=== PATIENT | female | born 1955 | race African-American/Black ===

== ENCOUNTER 2017-08-12 19:41 | Observation (INO) ==
[2017-08-12] MEDS ORDERED: KETOROLAC 30 MG/1 ML VIAL IV STA (20:08)
[2017-08-12] MEDS ORDERED: KETOROLAC 30 MG/1 ML VIAL ONE (20:13)
[2017-08-12 20:47] LABS: Basophils % 0.2 % (0.0-0.8); Eosinophils # 0.1 10*3/uL (0.0-0.87); Eosinophils % 0.9 % (0.00-10.9); Hematocrit 35.5 VOL% (35.7-47.0); Hemoglobin 10.6 GM/DL (12.0-16.0); Immature Granulocytes % 0.4 %; Immature Granulocytes Absolute 0.04 #; Lymphocytes # 3.3 10*3/uL (1.4-4.0); Lymphocytes % 36.5 % (21.3-54.2); Mean Corpuscular HGB Conc 29.9 GM/DL (32-36); Mean Corpuscular Hemoglobin 28 PG (27-34); Mean Corpuscular Volume 92.7 FL (87-102); Mean Platelet Volume 10.3 FL (9.6-12.0); Monocytes # 0.8 10*3/uL (0.11-0.8); Monocytes % 8.7 % (1.7-12.7); Neutrophils # 4.9 10*3/uL (1.4-7.4); Neutrophils % 53.3 % (38.7-73.9); Platelet Count 292 T/CUMM (130-400); Red Blood Count 3.83 MC/CUMM (3.8-5.5); Red Cell Distribution Width 15.1 % (9.3-17.3); White Blood Count 9.2 T/CUMM (4-12)
[2017-08-12 21:08] LABS: Alanine Aminotransferase 19 U/L (13-56); Albumin 3.1 G/DL (3.4-5.0); Alkaline Phosphatase 68 U/L (45-117); Aspartate Amino Transferase 15 U/L (0-37); Bilirubin,Total < 0.39 MG/DL (0.2-1.0); Blood Urea Nitrogen 23 MG/DL (7-18); Calcium 8.9 MG/DL (8.5-10.1); Glucose 84 MG/DL (74-106); Osmolality,Calculated 288.8 MOS/KG (273-304); Potassium 3.3 MMOL/L (3.5-5.1); Sodium 144 MMOL/L (136-145); Troponin I Only 0.026 NG/ML (0.00-0.045)
[2017-08-12 21:23] LABS: Apearance,Urine Slightly Hazy (Clear); Bilirubin,Urine Negative (Negative); Blood, Urine Negative (Negative); Glucose,Urine (UA) Negative (Negative); Ketones,Urine Negative (Negative); Mucus,Urine Occasional /LPF (Occasional); Nitrite,Urine Negative (Negative); Protein,Urine Negative; RBC,Urine 24 /HPF (0-4); Squamous Epithelial Cell,Urine Occasional /HPF (0-10); Urine Color Yellow (Yellow); Urine Specific Gravity 1.031 (1.001-1.035); WBC,Urine 3 /HPF (0-6)
[2017-08-12 21:32] LABS: Barbiturates Screen,Urine Negative (Negative); Benzodiazepines Screen,Urine Negative (Negative); Cannabinoid Screen,Urine Negative (Negative); Opiate Screen,Urine Positive (Negative); Phencyclidine Screen,Urine Negative (Negative)
[2017-08-12] MEDS ORDERED: POTASSIUM BICARB EFFERVESCENT 25 MEQ TABLET PO ONE ×2 (21:32→21:36)
[2017-08-12] MEDS ORDERED: SODIUM CHLORIDE 0.9% 1,000 ML IV SCH (22:00)
[2017-08-13 05:59] LABS: Calcium 9.2 MG/DL (8.5-10.1); Osmolality,Calculated 291.8 MOS/KG (273-304); Potassium 3.9 MMOL/L (3.5-5.1)
[2017-08-13 08:56] LABS: Basophils % 0.3 % (0.0-0.8); Eosinophils # 0.1 10*3/uL (0.0-0.87); Eosinophils % 1.4 % (0.00-10.9); Hematocrit 38.1 VOL% (35.7-47.0); Hemoglobin 11.4 GM/DL (12.0-16.0); Immature Granulocytes % 0.3 %; Immature Granulocytes Absolute 0.02 #; Lymphocytes # 2.8 10*3/uL (1.4-4.0); Lymphocytes % 41.4 % (21.3-54.2); Mean Corpuscular HGB Conc 29.9 GM/DL (32-36); Mean Corpuscular Hemoglobin 28 PG (27-34); Mean Corpuscular Volume 93.2 FL (87-102); Mean Platelet Volume 9.8 FL (9.6-12.0); Monocytes # 0.5 10*3/uL (0.11-0.8); Monocytes % 7.7 % (1.7-12.7); Neutrophils # 3.3 10*3/uL (1.4-7.4); Neutrophils % 48.9 % (38.7-73.9); Platelet Count 286 T/CUMM (130-400); Red Blood Count 4.09 MC/CUMM (3.8-5.5); Red Cell Distribution Width 15.3 % (9.3-17.3); White Blood Count 6.7 T/CUMM (4-12)
[2017-08-13] MEDS ORDERED: TOPIRAMATE 100 MG TABLET PO SCH (09:00)
[2017-08-13] MEDS ORDERED: amLODIPine 10 MG TABLET PO SCH (09:00)
[2017-08-13] MEDS ORDERED: TOPIRAMATE 25 MG TABLET PO SCH (09:00)
[2017-08-13] MEDS ORDERED: VALSARTAN 160 MG TABLET PO SCH (09:00)
[2017-08-13] MEDS ORDERED: CARVEDILOL 25 MG TABLET PO SCH (09:00)
[2017-08-13] MEDS ORDERED: tiZANidine 4 MG TABLET PO SCH (09:00)
[2017-08-13] MEDS ORDERED: CLOPIDOGREL 75 MG TABLET PO SCH (09:00)
[2017-08-13] MEDS ORDERED: MORPHINE 2 MG/1 ML SYRINGE IV PRN (09:54)
[2017-08-13] MEDS ORDERED: VANCOMYCIN INJ 1,000 MG in SODIUM CHLORIDE 0.9% 250 ML IV ONE (10:30)
[2017-08-13] MEDS ORDERED: ASPIRIN EC 81 MG TABLET PO SCH (11:00)
[2017-08-13] MEDS ORDERED: LIDOCAINE 1% 20 ML VIAL ONE (14:13)
[2017-08-13] MEDS ORDERED: TISSUE ADHESIVE 1 EACH APPLICATOR TOP ONE ×2 (14:16→14:30)
[2017-08-13] MEDS ORDERED: LIDOCAINE 1% 20 ML VIAL MISC INJ ONE (14:30)
[2017-08-13] MEDS ORDERED: ACETAMINOPHEN 500 MG TABLET PO ONE (16:07)
[2017-08-13 17:17] VITALS: BP 113/79
[2017-08-13] MEDS ORDERED: INFLUENZA VIRUS VACCINE 0.5 ML SYRINGE IM ONE (17:46)
[2017-08-13] MEDS ORDERED: PNEUMOCOCCAL VACCINE (13 VALENT) 0.5 ML SYRINGE IM ONE (17:47)
[2017-08-13] MEDS ORDERED: AMITRIPTYLINE 100 MG TABLET PO SCH (21:00)
[2017-08-14] MEDS ORDERED: DILTIAZEM CD 120 MG CAPSULE PO SCH (09:00)
== END 2017-08-13 18:50 | disposition home or self-care (01) ==
LOC: EDBD → EDUNIT# → N.EDINP 19:41 → N.ED 19:41 → N.EDINP 22:35 → N.TELEN 22:56
PROVIDERS: ADMIT Internal Medicine; ATTEND Internal Medicine

== ENCOUNTER 2017-11-02 20:08 | Inpatient (IN) ==
[2017-11-02 22:20] LABS: Basophils % 0.4 % (0.0-0.8); Eosinophils # 0.2 10*3/uL (0.0-0.87); Eosinophils % 3.8 % (0.00-10.9); Hematocrit 35.1 VOL% (35.7-47.0); Hemoglobin 10.6 GM/DL (12.0-16.0); Immature Granulocytes % 0.4 %; Immature Granulocytes Absolute 0.02 #; Lymphocytes # 2.5 10*3/uL (1.4-4.0); Lymphocytes % 45.6 % (21.3-54.2); Mean Corpuscular HGB Conc 30.2 GM/DL (32-36); Mean Corpuscular Hemoglobin 28 PG (27-34); Mean Corpuscular Volume 91.6 FL (87-102); Mean Platelet Volume 10.3 FL (9.6-12.0); Monocytes # 0.4 10*3/uL (0.11-0.8); Monocytes % 7.5 % (1.7-12.7); Neutrophils # 2.3 10*3/uL (1.4-7.4); Neutrophils % 42.3 % (38.7-73.9); Platelet Count 285 T/CUMM (130-400); Red Blood Count 3.83 MC/CUMM (3.8-5.5); Red Cell Distribution Width 14.6 % (9.3-17.3); White Blood Count 5.5 T/CUMM (4-12)
[2017-11-02 22:28] LABS: INR 1.1; PT Patient Result 11.9 SECS
[2017-11-02 22:42] LABS: Alanine Aminotransferase 12 U/L (13-56); Albumin 3.7 G/DL (3.4-5.0); Alkaline Phosphatase 74 U/L (45-117); Aspartate Amino Transferase 10 U/L (0-37); Bilirubin,Total < 0.39 MG/DL (0.2-1.0); Blood Urea Nitrogen 21 MG/DL (7-18); Calcium 9.2 MG/DL (8.5-10.1); Glucose 110 MG/DL (74-106); Osmolality,Calculated 286.1 MOS/KG (273-304); Potassium 3.5 MMOL/L (3.5-5.1); Sodium 142 MMOL/L (136-145); Total Protein 7.3 G/DL (6.4-8.3); Troponin I Only < 0.015 NG/ML (0.00-0.045)
[2017-11-03] MEDS ORDERED: ONDANSETRON 4 MG/2 ML VIAL IV STA (00:43)
[2017-11-03] MEDS ORDERED: ASPIRIN 325 MG TABLET PO STA (00:43)
[2017-11-03] MEDS ORDERED: MORPHINE 2 MG/1 ML SYRINGE IV STA (00:43)
[2017-11-03] MEDS ORDERED: ALUM/MAG/SIMETH/LIDO VISC 1:1 30 ML BOTTLE PO STA (00:43)
[2017-11-03] MEDS ORDERED: NITROGLYCERIN 2% OINT 1 INCH/GM PACK TOP STA (00:43)
[2017-11-03] MEDS ORDERED: FUROSEMIDE 40 MG/4 ML VIAL IV STA (00:45)
[2017-11-03] MEDS ORDERED: NITROGLYCERIN 2% OINT 1 INCH/GM PACK TOP ONE ×2 (00:51→06:15)
[2017-11-03] MEDS ORDERED: ASPIRIN 325 MG TABLET ONE ×2 (00:52→09:00)
[2017-11-03] MEDS ORDERED: ONDANSETRON 4 MG/2 ML VIAL ONE ×2 (00:52→06:33)
[2017-11-03] MEDS ORDERED: MORPHINE 2 MG/1 ML SYRINGE ONE ×2 (00:52→06:34)
[2017-11-03] MEDS ORDERED: FUROSEMIDE 40 MG/4 ML VIAL ONE (00:52)
[2017-11-03] MEDS ORDERED: ALUM/MAG/SIMETH/LIDO VISC 1:1 30 ML BOTTLE PO ONE (00:53)
[2017-11-03] MEDS ORDERED: ENOXAPARIN 100 MG/ML SYRINGE SUBCUT SCH (01:30)
[2017-11-03] MEDS ORDERED: ENOXAPARIN 30 MG/0.3 ML SYRINGE ONE (03:05)
[2017-11-03] MEDS ORDERED: ENOXAPARIN 120 MG/0.8 ML SYRINGE SUBCUT ONE (03:05)
[2017-11-03] MEDS ORDERED: ACETAMINOPHEN 325 MG TABLET PO PRN (03:31)
[2017-11-03] MEDS ORDERED: ONDANSETRON 4 MG/2 ML VIAL IV PRN (03:31)
[2017-11-03] MEDS ORDERED: ALBUTEROL/IPRATROPIUM 3 ML NEB RESP TX PRN (03:31)
[2017-11-03 04:14] LABS: INR 1.2; PT Patient Result 12.6 SECS
[2017-11-03] MEDS: SODIUM CHLORIDE 0.9% 1,000 ML IV SCH (04:18)
[2017-11-03 04:27] LABS: Alanine Aminotransferase 12 U/L (13-56); Albumin 3.4 G/DL (3.4-5.0); Alkaline Phosphatase 71 U/L (45-117); Aspartate Amino Transferase 17 U/L (0-37); Bilirubin,Total < 0.39 MG/DL (0.2-1.0); Blood Urea Nitrogen 21 MG/DL (7-18); Cholesterol 203 MG/DL (50-200); Glucose 117 MG/DL (74-106); HDL Cholesterol 57 MG/DL (40-60); Magnesium 2.4 MG/DL (1.8-2.4); Osmolality,Calculated 291.7 MOS/KG (273-304); Potassium 3.9 MMOL/L (3.5-5.1); Risk Ratio 3.56; Sodium 145 MMOL/L (136-145); Total Protein 6.3 G/DL (6.4-8.3); Triglycerides 121 MG/DL (2-150); VLDL CHOLESTEROL 24.2 MG/DL
[2017-11-03 04:31] LABS: Basophils % 0.6 % (0.0-0.8); Eosinophils # 0.2 10*3/uL (0.0-0.87); Eosinophils % 4.4 % (0.00-10.9); Hematocrit 29.9 VOL% (35.7-47.0); Hemoglobin 8.8 GM/DL (12.0-16.0); Immature Granulocytes % 0.2 %; Immature Granulocytes Absolute 0.01 #; Lymphocytes # 2.4 10*3/uL (1.4-4.0); Lymphocytes % 44.8 % (21.3-54.2); Mean Corpuscular HGB Conc 29.4 GM/DL (32-36); Mean Corpuscular Hemoglobin 28 PG (27-34); Mean Corpuscular Volume 94.9 FL (87-102); Mean Platelet Volume 10.8 FL (9.6-12.0); Monocytes # 0.5 10*3/uL (0.11-0.8); Monocytes % 8.8 % (1.7-12.7); Neutrophils # 2.2 10*3/uL (1.4-7.4); Neutrophils % 41.2 % (38.7-73.9); Platelet Count 219 T/CUMM (130-400); Red Blood Count 3.15 MC/CUMM (3.8-5.5); Red Cell Distribution Width 14.9 % (9.3-17.3); White Blood Count 5.4 T/CUMM (4-12)
[2017-11-03] MEDS: NITROGLYCERIN 2% OINT 1 INCH/GM PACK TOP SCH ×3 (06:00→17:33)
[2017-11-03 06:45] LABS: Apearance,Urine Slightly Hazy (Clear); Bacteria,Urine Occasional /HPF (Few); Bilirubin,Urine Negative (Negative); Blood, Urine Negative (Negative); Glucose,Urine (UA) Negative (Negative); Hyaline Casts,Urine 2 /LPF (0-3); Ketones,Urine Negative (Negative); Mucus,Urine Occasional /LPF (Occasional); Nitrite,Urine Negative (Negative); Protein,Urine Negative; Squamous Epithelial Cell,Urine Occasional /HPF (0-10); Urine Color Yellow (Yellow); Urine Specific Gravity 1.005 (1.001-1.035); Urine Urobilinogen < 2.0 EU/DL (0.2-1.0); WBC,Urine <1 /HPF (0-6)
[2017-11-03] MEDS: MORPHINE 2 MG/1 ML SYRINGE IV PRN ×2 (06:48→12:34)
[2017-11-03] MEDS ORDERED: PANTOPRAZOLE 40 MG VIAL IV ONE (08:59)
[2017-11-03] MEDS ORDERED: DOCUSATE SODIUM 100 MG CAPSULE ONE (08:59)
[2017-11-03] MEDS ORDERED: PANTOPRAZOLE 40 MG VIAL IV SCH (09:00)
[2017-11-03] MEDS ORDERED: ASPIRIN CHEW 81 MG TABLET PO ONE (09:02)
[2017-11-03] MEDS: DOCUSATE SODIUM 100 MG CAPSULE PO SCH ×2 (09:07→21:10)
[2017-11-03] MEDS: ASPIRIN EC 81 MG TABLET PO SCH (09:17)
[2017-11-03] MEDS: CARVEDILOL 12.5 MG TABLET PO SCH ×2 (14:16→21:10)
[2017-11-03] MEDS: hydrALAZINE 25 MG TABLET PO SCH ×2 (14:16→21:10)
[2017-11-03] MEDS: CLOPIDOGREL 75 MG TABLET PO SCH (14:16)
[2017-11-03] MEDS: DILTIAZEM CD 120 MG CAPSULE PO SCH (14:16)
[2017-11-03] MEDS: tiZANidine 4 MG TABLET PO SCH (21:09)
[2017-11-03] MEDS: TOPIRAMATE 25 MG TABLET PO SCH (21:10)
[2017-11-03] MEDS: AMITRIPTYLINE 100 MG TABLET PO SCH (21:14)
[2017-11-04] MEDS: NITROGLYCERIN 2% OINT 1 INCH/GM PACK TOP SCH ×4 (00:16→17:47)
[2017-11-04] MEDS: MORPHINE 2 MG/1 ML SYRINGE IV PRN ×2 (00:52→14:50)
[2017-11-04] MEDS: SODIUM CHLORIDE 0.9% 1,000 ML IV SCH (06:16)
[2017-11-04 07:07] LABS: Albumin 3.7 G/DL (3.4-5.0); Bilirubin,Total 0.5 MG/DL (0.2-1.0); Magnesium 2.6 MG/DL (1.8-2.4); Osmolality,Calculated 282.4 MOS/KG (273-304); Potassium 4.5 MMOL/L (3.5-5.1); Thyroid Stimulating Hormone 0.83 uIU/ml (0.358-3.74); Total Protein 6.7 G/DL (6.4-8.3)
[2017-11-04] MEDS: VALSARTAN 160 MG TABLET PO SCH (09:08)
[2017-11-04] MEDS: hydrALAZINE 25 MG TABLET PO SCH ×3 (09:08→22:43)
[2017-11-04] MEDS: ASPIRIN EC 81 MG TABLET PO SCH (09:08)
[2017-11-04] MEDS: CLOPIDOGREL 75 MG TABLET PO SCH (09:08)
[2017-11-04] MEDS: PANTOPRAZOLE 40 MG TABLET PO SCH (09:09)
[2017-11-04] MEDS: DOCUSATE SODIUM 100 MG CAPSULE PO SCH ×2 (09:09→22:43)
[2017-11-04] MEDS: DILTIAZEM CD 120 MG CAPSULE PO SCH (09:09)
[2017-11-04] MEDS: CARVEDILOL 12.5 MG TABLET PO SCH ×2 (09:09→22:42)
[2017-11-04] MEDS: TOPIRAMATE 25 MG TABLET PO SCH ×2 (09:09→22:43)
[2017-11-04] MEDS: FUROSEMIDE 40 MG TABLET PO SCH (09:09)
[2017-11-04] MEDS: tiZANidine 4 MG TABLET PO SCH ×2 (09:09→22:43)
[2017-11-04 14:43] LABS: Calcium 9.2 MG/DL (8.5-10.1); Magnesium 2.4 MG/DL (1.8-2.4); Osmolality,Calculated 282.5 MOS/KG (273-304); Potassium 4.4 MMOL/L (3.5-5.1)
[2017-11-04 14:54] LABS: Basophils % 0.3 % (0.0-0.8); Eosinophils # 0.1 10*3/uL (0.0-0.87); Eosinophils % 1.1 % (0.00-10.9); Hematocrit 35.2 VOL% (35.7-47.0); Hemoglobin 10.2 GM/DL (12.0-16.0); Immature Granulocytes % 0.1 %; Immature Granulocytes Absolute 0.01 #; Lymphocytes % 42.5 % (21.3-54.2); Mean Corpuscular Hemoglobin 28 PG (27-34); Mean Corpuscular Volume 94.9 FL (87-102); Monocytes # 0.7 10*3/uL (0.11-0.8); Monocytes % 9.3 % (1.7-12.7); Neutrophils # 3.3 10*3/uL (1.4-7.4); Neutrophils % 46.7 % (38.7-73.9); Platelet Count 264 T/CUMM (130-400); Red Blood Count 3.71 MC/CUMM (3.8-5.5); Red Cell Distribution Width 14.6 % (9.3-17.3); White Blood Count 7.1 T/CUMM (4-12)
[2017-11-04] MEDS: AMITRIPTYLINE 100 MG TABLET PO SCH (22:42)
[2017-11-05] MEDS: NITROGLYCERIN 2% OINT 1 INCH/GM PACK TOP SCH ×4 (02:58→17:07)
[2017-11-05 04:44] LABS: Basophils % 0.3 % (0.0-0.8); Eosinophils # 0.1 10*3/uL (0.0-0.87); Eosinophils % 1.2 % (0.00-10.9); Hematocrit 29.9 VOL% (35.7-47.0); Hemoglobin 8.9 GM/DL (12.0-16.0); Immature Granulocytes % 0.3 %; Immature Granulocytes Absolute 0.02 #; Lymphocytes # 3.4 10*3/uL (1.4-4.0); Lymphocytes % 49.7 % (21.3-54.2); Mean Corpuscular HGB Conc 29.8 GM/DL (32-36); Mean Corpuscular Hemoglobin 28 PG (27-34); Mean Corpuscular Volume 93.4 FL (87-102); Mean Platelet Volume 10.1 FL (9.6-12.0); Monocytes # 0.7 10*3/uL (0.11-0.8); Monocytes % 10.6 % (1.7-12.7); Neutrophils # 2.6 10*3/uL (1.4-7.4); Neutrophils % 37.9 % (38.7-73.9); Platelet Count 247 T/CUMM (130-400); Red Cell Distribution Width 14.2 % (9.3-17.3); White Blood Count 6.8 T/CUMM (4-12)
[2017-11-05 05:12] LABS: Eosinophils 1 % (0-10); Giant Platelets Few; Hypochromasia 1+; Lymphocytes 55 % (20-55); Ovalocytes Slight; Platelet Estimate Adequate; Segmented Neutrophils 38 % (50-85); Total Cells Counted 100
[2017-11-05 05:20] LABS: Calcium 8.7 MG/DL (8.5-10.1); Magnesium 2.3 MG/DL (1.8-2.4); Osmolality,Calculated 289.1 MOS/KG (273-304); Potassium 3.9 MMOL/L (3.5-5.1)
[2017-11-05] MEDS: SODIUM CHLORIDE 0.9% 1,000 ML IV SCH (05:44)
[2017-11-05] MEDS: tiZANidine 4 MG TABLET PO SCH ×2 (08:42→22:20)
[2017-11-05] MEDS: DOCUSATE SODIUM 100 MG CAPSULE PO SCH ×2 (08:43→22:20)
[2017-11-05] MEDS: hydrALAZINE 25 MG TABLET PO SCH ×3 (08:43→22:20)
[2017-11-05] MEDS: PANTOPRAZOLE 40 MG TABLET PO SCH (08:43)
[2017-11-05] MEDS: VALSARTAN 160 MG TABLET PO SCH (08:43)
[2017-11-05] MEDS: DILTIAZEM CD 120 MG CAPSULE PO SCH (08:43)
[2017-11-05] MEDS: TOPIRAMATE 25 MG TABLET PO SCH ×2 (08:44→22:19)
[2017-11-05] MEDS: FUROSEMIDE 40 MG TABLET PO SCH (08:44)
[2017-11-05] MEDS: CLOPIDOGREL 75 MG TABLET PO SCH (08:44)
[2017-11-05] MEDS: ASPIRIN EC 81 MG TABLET PO SCH (08:44)
[2017-11-05] MEDS: CARVEDILOL 12.5 MG TABLET PO SCH ×2 (08:47→22:19)
[2017-11-05] MEDS: MORPHINE 2 MG/1 ML SYRINGE IV PRN ×2 (09:19→20:36)
[2017-11-05] MEDS: AMITRIPTYLINE 100 MG TABLET PO SCH (22:20)
[2017-11-06] MEDS: NITROGLYCERIN 2% OINT 1 INCH/GM PACK TOP SCH ×4 (01:38→17:29)
[2017-11-06] MEDS: SODIUM CHLORIDE 0.9% 1,000 ML IV SCH (03:22)
[2017-11-06] MEDS: MORPHINE 2 MG/1 ML SYRINGE IV PRN ×3 (05:31→23:14)
[2017-11-06] MEDS: TOPIRAMATE 25 MG TABLET PO SCH ×2 (09:05→23:14)
[2017-11-06] MEDS: PANTOPRAZOLE 40 MG TABLET PO SCH (09:05)
[2017-11-06] MEDS: VALSARTAN 160 MG TABLET PO SCH (09:06)
[2017-11-06] MEDS: hydrALAZINE 25 MG TABLET PO SCH ×3 (09:06→23:15)
[2017-11-06] MEDS: CARVEDILOL 12.5 MG TABLET PO SCH ×2 (09:06→23:14)
[2017-11-06] MEDS: CLOPIDOGREL 75 MG TABLET PO SCH (09:06)
[2017-11-06] MEDS: DOCUSATE SODIUM 100 MG CAPSULE PO SCH ×2 (09:06→23:14)
[2017-11-06] MEDS: DILTIAZEM CD 120 MG CAPSULE PO SCH (09:06)
[2017-11-06] MEDS: ASPIRIN EC 81 MG TABLET PO SCH (09:07)
[2017-11-06] MEDS: tiZANidine 4 MG TABLET PO SCH ×2 (09:07→23:14)
[2017-11-06] MEDS: FUROSEMIDE 40 MG TABLET PO SCH (09:07)
[2017-11-06 10:02] LABS: Basophils % 0.3 % (0.0-0.8); Eosinophils # 0.2 10*3/uL (0.0-0.87); Eosinophils % 3.3 % (0.00-10.9); Hematocrit 32.5 VOL% (35.7-47.0); Hemoglobin 9.6 GM/DL (12.0-16.0); Immature Granulocytes % 0.3 %; Immature Granulocytes Absolute 0.02 #; Lymphocytes # 2.4 10*3/uL (1.4-4.0); Lymphocytes % 35.6 % (21.3-54.2); Mean Corpuscular HGB Conc 29.5 GM/DL (32-36); Mean Corpuscular Hemoglobin 28 PG (27-34); Mean Corpuscular Volume 94.2 FL (87-102); Mean Platelet Volume 9.8 FL (9.6-12.0); Monocytes # 0.6 10*3/uL (0.11-0.8); Monocytes % 9.1 % (1.7-12.7); Neutrophils # 3.4 10*3/uL (1.4-7.4); Neutrophils % 51.4 % (38.7-73.9); Platelet Count 258 T/CUMM (130-400); Red Blood Count 3.45 MC/CUMM (3.8-5.5); Red Cell Distribution Width 14.3 % (9.3-17.3); White Blood Count 6.6 T/CUMM (4-12)
[2017-11-06 10:22] LABS: Calcium 9.2 MG/DL (8.5-10.1); Magnesium 2.4 MG/DL (1.8-2.4); Osmolality,Calculated 289.1 MOS/KG (273-304)
[2017-11-06] MEDS: AMITRIPTYLINE 100 MG TABLET PO SCH (23:15)
[2017-11-07] MEDS: NITROGLYCERIN 2% OINT 1 INCH/GM PACK TOP SCH ×4 (02:02→17:23)
[2017-11-07] MEDS: SODIUM CHLORIDE 0.9% 1,000 ML IV SCH (04:17)
[2017-11-07] MEDS: DILTIAZEM CD 120 MG CAPSULE PO SCH (09:36)
[2017-11-07] MEDS: VALSARTAN 160 MG TABLET PO SCH (09:36)
[2017-11-07] MEDS: tiZANidine 4 MG TABLET PO SCH ×2 (09:37→21:53)
[2017-11-07] MEDS: CLOPIDOGREL 75 MG TABLET PO SCH (09:37)
[2017-11-07] MEDS: DOCUSATE SODIUM 100 MG CAPSULE PO SCH ×2 (09:37→21:53)
[2017-11-07] MEDS: FUROSEMIDE 40 MG TABLET PO SCH (09:37)
[2017-11-07] MEDS: TOPIRAMATE 25 MG TABLET PO SCH ×2 (09:37→21:53)
[2017-11-07] MEDS: PANTOPRAZOLE 40 MG TABLET PO SCH (09:37)
[2017-11-07] MEDS: hydrALAZINE 25 MG TABLET PO SCH ×3 (09:37→21:53)
[2017-11-07] MEDS: CARVEDILOL 12.5 MG TABLET PO SCH ×2 (09:37→21:53)
[2017-11-07] MEDS: ASPIRIN EC 81 MG TABLET PO SCH (09:37)
[2017-11-07] MEDS: MORPHINE 2 MG/1 ML SYRINGE IV PRN ×2 (10:37→18:04)
[2017-11-07] MEDS: AMITRIPTYLINE 100 MG TABLET PO SCH (21:53)
[2017-11-08] MEDS: NITROGLYCERIN 2% OINT 1 INCH/GM PACK TOP SCH ×4 (01:04→18:03)
[2017-11-08] MEDS: MORPHINE 2 MG/1 ML SYRINGE IV PRN ×2 (01:07→09:48)
[2017-11-08] MEDS: SODIUM CHLORIDE 0.9% 1,000 ML IV SCH (06:02)
[2017-11-08] MEDS: ASPIRIN EC 81 MG TABLET PO SCH (09:46)
[2017-11-08] MEDS: hydrALAZINE 25 MG TABLET PO SCH ×2 (09:46→15:48)
[2017-11-08] MEDS: CARVEDILOL 12.5 MG TABLET PO SCH (09:46)
[2017-11-08] MEDS: CLOPIDOGREL 75 MG TABLET PO SCH (09:46)
[2017-11-08] MEDS: VALSARTAN 160 MG TABLET PO SCH (09:46)
[2017-11-08] MEDS: PANTOPRAZOLE 40 MG TABLET PO SCH (09:46)
[2017-11-08] MEDS: DILTIAZEM CD 120 MG CAPSULE PO SCH (09:46)
[2017-11-08] MEDS: tiZANidine 4 MG TABLET PO SCH (09:46)
[2017-11-08] MEDS: FUROSEMIDE 40 MG TABLET PO SCH (09:47)
[2017-11-08] MEDS: TOPIRAMATE 25 MG TABLET PO SCH (09:47)
[2017-11-08] MEDS: DOCUSATE SODIUM 100 MG CAPSULE PO SCH (09:47)
[2017-11-09] MEDS: NITROGLYCERIN 2% OINT 1 INCH/GM PACK TOP SCH ×4 (00:12→17:59)
[2017-11-09] MEDS: DOCUSATE SODIUM 100 MG CAPSULE PO SCH ×2 (00:12→09:47)
[2017-11-09] MEDS: CARVEDILOL 12.5 MG TABLET PO SCH ×2 (00:12→09:48)
[2017-11-09] MEDS: TOPIRAMATE 25 MG TABLET PO SCH ×2 (00:12→09:43)
[2017-11-09] MEDS: AMITRIPTYLINE 100 MG TABLET PO SCH (00:12)
[2017-11-09] MEDS: hydrALAZINE 25 MG TABLET PO SCH ×3 (00:12→15:03)
[2017-11-09] MEDS: tiZANidine 4 MG TABLET PO SCH ×2 (00:12→09:43)
[2017-11-09] MEDS: MORPHINE 2 MG/1 ML SYRINGE IV PRN ×2 (00:13→04:25)
[2017-11-09] MEDS: SODIUM CHLORIDE 0.9% 1,000 ML IV SCH (04:25)
[2017-11-09 04:55] LABS: Basophils % 0.4 % (0.0-0.8); Eosinophils # 0.2 10*3/uL (0.0-0.87); Eosinophils % 3.4 % (0.00-10.9); Hematocrit 29.8 VOL% (35.7-47.0); Hemoglobin 8.9 GM/DL (12.0-16.0); Immature Granulocytes % 0.3 %; Immature Granulocytes Absolute 0.02 #; Lymphocytes # 2.8 10*3/uL (1.4-4.0); Lymphocytes % 39.1 % (21.3-54.2); Mean Corpuscular HGB Conc 29.9 GM/DL (32-36); Mean Corpuscular Hemoglobin 28 PG (27-34); Mean Platelet Volume 10.5 FL (9.6-12.0); Monocytes # 0.7 10*3/uL (0.11-0.8); Monocytes % 9.7 % (1.7-12.7); Neutrophils # 3.3 10*3/uL (1.4-7.4); Neutrophils % 47.1 % (38.7-73.9); Platelet Count 262 T/CUMM (130-400); Red Blood Count 3.17 MC/CUMM (3.8-5.5); Red Cell Distribution Width 14.4 % (9.3-17.3)
[2017-11-09 05:31] LABS: Calcium 9.5 MG/DL (8.5-10.1); Magnesium 2.3 MG/DL (1.8-2.4); Osmolality,Calculated 288.1 MOS/KG (273-304); Potassium 3.9 MMOL/L (3.5-5.1)
[2017-11-09] MEDS: CLOPIDOGREL 75 MG TABLET PO SCH (09:43)
[2017-11-09] MEDS: DILTIAZEM CD 120 MG CAPSULE PO SCH (09:44)
[2017-11-09] MEDS: VALSARTAN 160 MG TABLET PO SCH (09:44)
[2017-11-09] MEDS: PANTOPRAZOLE 40 MG TABLET PO SCH (09:44)
[2017-11-09] MEDS: FUROSEMIDE 40 MG TABLET PO SCH (09:47)
[2017-11-09] MEDS: ASPIRIN EC 81 MG TABLET PO SCH (09:47)
[2017-11-09 15:37] VITALS: BP 101/60
== END 2017-11-09 20:19 | disposition home health service (06) | DRG 313 ==
LOC: N.ED 20:08 → N.EDINP 11-03 01:10 → N.TELES 11-03 11:25
PROVIDERS: ADMIT Family Medicine; ATTEND Family Medicine

== ENCOUNTER 2018-04-13 11:43 | Observation (INO) ==
[2018-04-13 14:21] LABS: Basophils % 0.3 % (0.0-0.8); Eosinophils # 0.2 10*3/uL (0.0-0.87); Eosinophils % 3.4 % (0.00-10.9); Hematocrit 34.4 VOL% (35.7-47.0); Hemoglobin 10.4 GM/DL (12.0-16.0); Immature Granulocytes % 0.2 %; Immature Granulocytes Absolute 0.01 #; Lymphocytes # 2.2 10*3/uL (1.4-4.0); Lymphocytes % 37.3 % (21.3-54.2); Mean Corpuscular HGB Conc 30.2 GM/DL (32-36); Mean Corpuscular Hemoglobin 28 PG (27-34); Mean Platelet Volume 10.4 FL (9.6-12.0); Monocytes # 0.4 10*3/uL (0.11-0.8); Monocytes % 7.2 % (1.7-12.7); Neutrophils % 51.6 % (38.7-73.9); Platelet Count 291 T/CUMM (130-400); Red Blood Count 3.78 MC/CUMM (3.8-5.5); Red Cell Distribution Width 17.4 % (9.3-17.3); White Blood Count 5.8 T/CUMM (4-12)
[2018-04-13 14:23] LABS: Alanine Aminotransferase 13 U/L (13-56); Albumin 3.3 G/DL (3.4-5.0); Alkaline Phosphatase 68 U/L (45-117); Aspartate Amino Transferase 12 U/L (0-37); Bilirubin,Total < 0.39 MG/DL (0.2-1.0); Blood Urea Nitrogen 21 MG/DL (7-18); Calcium 9.6 MG/DL (8.5-10.1); Glucose 85 MG/DL (74-106); Osmolality,Calculated 287.8 MOS/KG (273-304); Potassium 3.9 MMOL/L (3.5-5.1); Sodium 144 MMOL/L (136-145); Total Protein 7.3 G/DL (6.4-8.3)
[2018-04-13] MEDS ORDERED: hydrALAZINE 20 MG/1 ML VIAL IV STA (14:34)
[2018-04-13 15:43] LABS: Apearance,Urine CLEAR (Clear); Bilirubin,Urine Negative (Negative); Blood, Urine Negative (Negative); Glucose,Urine (UA) Negative (Negative); Ketones,Urine Negative (Negative); Nitrite,Urine Negative (Negative); Protein,Urine Negative; RBC,Urine <1 /HPF (0-4); Squamous Epithelial Cell,Urine Occasional /HPF (0-10); Urine Color Colorless (Yellow); Urine Specific Gravity 1.005 (1.001-1.035); Urine Urobilinogen < 2.0 EU/DL (0.2-1.0); WBC,Urine <1 /HPF (0-6)
[2018-04-13] MEDS ORDERED: ONDANSETRON 4 MG/2 ML VIAL IV PRN (17:58)
[2018-04-13] MEDS ORDERED: GLUCAGON 1 MG VIAL IM PRN (17:58)
[2018-04-13] MEDS ORDERED: ASPIRIN 325 MG TABLET PO STA (17:58)
[2018-04-13] MEDS ORDERED: DEXTROSE 50% 25 GM/50 ML VIAL IV PRN (17:58)
[2018-04-13] MEDS ORDERED: KETOROLAC 30 MG/1 ML VIAL IV ONE (20:19)
[2018-04-13] MEDS: TOPIRAMATE 100 MG TABLET PO SCH (21:13)
[2018-04-13] MEDS: GABAPENTIN 300 MG CAPSULE PO SCH (21:14)
[2018-04-13] MEDS: hydrALAZINE 25 MG TABLET PO SCH (21:14)
[2018-04-13] MEDS: AMITRIPTYLINE 100 MG TABLET PO SCH (21:14)
[2018-04-13] MEDS: DOCUSATE SODIUM 100 MG CAPSULE PO SCH (21:14)
[2018-04-13] MEDS: CARVEDILOL 25 MG TABLET PO SCH (21:17)
[2018-04-14] MEDS: VALSARTAN 160 MG TABLET PO SCH (08:46)
[2018-04-14] MEDS: PANTOPRAZOLE 20 MG TABLET PO SCH (08:47)
[2018-04-14] MEDS: prednisoLONE 5 MG TABLET PO SCH (08:47)
[2018-04-14] MEDS: CARVEDILOL 25 MG TABLET PO SCH ×2 (08:47→18:21)
[2018-04-14] MEDS: FUROSEMIDE 40 MG TABLET PO SCH (08:47)
[2018-04-14] MEDS: TOPIRAMATE 100 MG TABLET PO SCH ×2 (08:47→21:01)
[2018-04-14] MEDS: GABAPENTIN 300 MG CAPSULE PO SCH ×2 (08:47→21:01)
[2018-04-14] MEDS: ASPIRIN EC 81 MG TABLET PO SCH (08:47)
[2018-04-14] MEDS: hydrALAZINE 25 MG TABLET PO SCH ×3 (08:47→21:01)
[2018-04-14] MEDS: CLOPIDOGREL 75 MG TABLET PO SCH (08:48)
[2018-04-14] MEDS: DOCUSATE SODIUM 100 MG CAPSULE PO SCH ×2 (08:48→21:01)
[2018-04-14] MEDS ORDERED: BACLOFEN 10 MG TABLET PO PRN (12:46)
[2018-04-14] MEDS: AMITRIPTYLINE 100 MG TABLET PO SCH (21:04)
[2018-04-15 08:59] LABS: Basophils % 0.2 % (0.0-0.8); Eosinophils % 0.6 % (0.00-10.9); Hematocrit 32.9 VOL% (35.7-47.0); Hemoglobin 10.1 GM/DL (12.0-16.0); Immature Granulocytes % 0.2 %; Immature Granulocytes Absolute 0.01 #; Lymphocytes # 1.7 10*3/uL (1.4-4.0); Lymphocytes % 33.9 % (21.3-54.2); Mean Corpuscular HGB Conc 30.7 GM/DL (32-36); Mean Corpuscular Hemoglobin 28 PG (27-34); Mean Corpuscular Volume 90.9 FL (87-102); Mean Platelet Volume 9.8 FL (9.6-12.0); Monocytes # 0.4 10*3/uL (0.11-0.8); Monocytes % 7.2 % (1.7-12.7); Neutrophils # 2.9 10*3/uL (1.4-7.4); Neutrophils % 57.9 % (38.7-73.9); Platelet Count 290 T/CUMM (130-400); Red Blood Count 3.62 MC/CUMM (3.8-5.5); Red Cell Distribution Width 17.3 % (9.3-17.3)
[2018-04-15] MEDS ORDERED: Liraglutide [Victoza 2-Pak] 1.8 MG SQ SCH (09:00)
[2018-04-15] MEDS ORDERED: VALSARTAN 320 MG PO SCH (09:00)
[2018-04-15] MEDS ORDERED: FOLIC ACID 1 MG TABLET PO SCH (09:00)
[2018-04-15] MEDS: DOCUSATE SODIUM 100 MG CAPSULE PO SCH (09:12)
[2018-04-15] MEDS: PANTOPRAZOLE 20 MG TABLET PO SCH (09:12)
[2018-04-15] MEDS: GABAPENTIN 300 MG CAPSULE PO SCH (09:12)
[2018-04-15] MEDS: VALSARTAN 160 MG TABLET PO SCH (09:12)
[2018-04-15] MEDS: CLOPIDOGREL 75 MG TABLET PO SCH (09:12)
[2018-04-15 09:13] LABS: Calcium 9.5 MG/DL (8.5-10.1); Potassium 3.7 MMOL/L (3.5-5.1)
[2018-04-15] MEDS: prednisoLONE 5 MG TABLET PO SCH (09:13)
[2018-04-15] MEDS: TOPIRAMATE 100 MG TABLET PO SCH (09:13)
[2018-04-15] MEDS: hydrALAZINE 25 MG TABLET PO SCH (09:13)
[2018-04-15] MEDS: CARVEDILOL 25 MG TABLET PO SCH (09:13)
[2018-04-15] MEDS: ASPIRIN EC 81 MG TABLET PO SCH (09:13)
[2018-04-15] MEDS: FUROSEMIDE 40 MG TABLET PO SCH (09:13)
[2018-04-15] MEDS ORDERED: MORPHINE 4 MG/1 ML VIAL IV ONE (09:18)
[2018-04-15 12:19] VITALS: BP 123/86
[2018-04-20] MEDS ORDERED: METHOTREXATE 2.5 MG TABLET PO SCH (12:46)
== END 2018-04-15 14:45 | disposition home or self-care (01) ==
LOC: N.EDINP 11:43 → N.ED 11:43 → N.EDINP 17:49 → N.TELES 17:57
PROVIDERS: ADMIT Family Medicine; ATTEND Family Medicine

== ENCOUNTER 2018-05-12 05:49 | Inpatient (IN) ==
[2018-05-11 13:39] LABS: Basophils % 0.4 % (0.0-0.8); Eosinophils # 0.1 10*3/uL (0.0-0.87); Eosinophils % 2.3 % (0.00-10.9); Hematocrit 32.1 VOL% (35.7-47.0); Hemoglobin 9.5 GM/DL (12.0-16.0); Immature Granulocytes % 0.4 %; Immature Granulocytes Absolute 0.02 #; Lymphocytes # 2.3 10*3/uL (1.4-4.0); Lymphocytes % 42.1 % (21.3-54.2); Mean Corpuscular HGB Conc 29.6 GM/DL (32-36); Mean Corpuscular Hemoglobin 28 PG (27-34); Mean Corpuscular Volume 94.7 FL (87-102); Mean Platelet Volume 9.8 FL (9.6-12.0); Monocytes # 0.5 10*3/uL (0.11-0.8); Monocytes % 8.7 % (1.7-12.7); Neutrophils # 2.6 10*3/uL (1.4-7.4); Neutrophils % 46.1 % (38.7-73.9); Platelet Count 254 T/CUMM (130-400); Red Blood Count 3.39 MC/CUMM (3.8-5.5); Red Cell Distribution Width 16.9 % (9.3-17.3); White Blood Count 5.5 T/CUMM (4-12)
[2018-05-11 13:56] LABS: Albumin 3.4 G/DL (3.4-5.0); Bilirubin,Total 0.4 MG/DL (0.2-1.0); Calcium 9.4 MG/DL (8.5-10.1); Osmolality,Calculated 287.8 MOS/KG (273-304); Potassium 3.7 MMOL/L (3.5-5.1); Total Protein 7.2 G/DL (6.4-8.3)
[2018-05-11 13:58] LABS: Apearance,Urine CLEAR (Clear); Bacteria,Urine Occasional /HPF (Few); Bilirubin,Urine Negative (Negative); Blood, Urine Negative (Negative); Glucose,Urine (UA) Negative (Negative); Hyaline Casts,Urine 1 /LPF (0-3); Ketones,Urine Negative (Negative); Mucus,Urine Occasional /LPF (Occasional); Nitrite,Urine Negative (Negative); Protein,Urine Negative; RBC,Urine 1 /HPF (0-4); Squamous Epithelial Cell,Urine Occasional /HPF (0-10); Urine Color Straw (Yellow); Urine Specific Gravity 1.006 (1.001-1.035); Urine Urobilinogen < 2.0 EU/DL (0.2-1.0); WBC,Urine 1 /HPF (0-6)
[2018-05-12] MEDS ORDERED: ROPIVACAINE 0.5% 30 ML VIAL ONE (06:11)
[2018-05-12] MEDS: LACTATED RINGERS 1,000 ML IV SCH ×2 (06:41→10:53)
[2018-05-12] MEDS ORDERED: CLINDAMYCIN INJ 50 ML IV ONE ×2 (06:51→07:00)
[2018-05-12] MEDS ORDERED: VANCOMYCIN 1,000 MG VIAL ONE (06:54)
[2018-05-12] MEDS ORDERED: VANCOMYCIN INJ 1,000 MG in SODIUM CHLORIDE 0.9% 250 ML IV ONE (07:04)
[2018-05-12] MEDS ORDERED: NALOXONE 0.4 MG/ML VIAL IV PRN (09:30)
[2018-05-12] MEDS ORDERED: PROMETHAZINE 25 MG/1 ML VIAL IM PRN (09:30)
[2018-05-12] MEDS ORDERED: MAGNESIUM HYDROXIDE SUSP 30 ML UDCUP PO PRN (09:30)
[2018-05-12] MEDS ORDERED: MORPHINE PCA 30 MG/30 ML SYRINGE IV SCH (09:30)
[2018-05-12] MEDS ORDERED: ONDANSETRON 4 MG/2 ML VIAL IV PRN (09:30)
[2018-05-12] MEDS ORDERED: BACLOFEN 10 MG TABLET PO PRN (09:33)
[2018-05-12] MEDS ORDERED: PROPOFOL 200 MG/20 ML VIAL IV ONE (10:13)
[2018-05-12] MEDS ORDERED: MIDAZOLAM 2 MG/2 ML VIAL ONE (10:14)
[2018-05-12] MEDS ORDERED: SODIUM CHLORIDE 0.9% 250 ML IV ONE (10:14)
[2018-05-12] MEDS ORDERED: ROCURONIUM 100 MG/10 ML VIAL IV ONE (10:14)
[2018-05-12] MEDS ORDERED: fentaNYL 100 MCG/2 ML VIAL ONE (10:14)
[2018-05-12] MEDS ORDERED: PHENYLEPHRINE 1 MG/10 ML SYRINGE IV ONE (10:14)
[2018-05-12] MEDS ORDERED: LACTATED RINGERS 1,000 ML IV ONE (10:14)
[2018-05-12] MEDS ORDERED: PHENYLEPHRINE 10 MG/1 ML VIAL IV ONE (10:14)
[2018-05-12] MEDS ORDERED: ACETAMINOPHEN 1,000 MG/100 ML VIAL IV ONE (10:14)
[2018-05-12] MEDS ORDERED: SEVOFLURANE 1 UNIT/15 MINUTE INH ONE (10:15)
[2018-05-12] MEDS: MORPHINE 4 MG/1 ML VIAL IV PRN ×2 (12:04→19:16)
[2018-05-12] MEDS: PROPOFOL 1,000 MG/100 ML BOTTLE IV SCH ×2 (12:10→21:28)
[2018-05-12 13:20] LABS: ABG Base Excess 0.4 MMOL/L (-2.5-2.5); ABG HCO3 24.7 MMOL/L (20-26); ABG PH 7.288 (7.35-7.45); ABG PO2 83.2 MM HG (80-95); ABG TCO2 26.1 MMOL/L (23-27)
[2018-05-12] MEDS ORDERED: DEXMEDETOMIDINE 200 MCG in SODIUM CHLORIDE 0.9% 48 ML IV PRN (14:00)
[2018-05-12] MEDS ORDERED: ENOXAPARIN 40 MG/0.4 ML SYRINGE SUBCUT SCH (15:00)
[2018-05-12] MEDS ORDERED: METOPROLOL TARTRATE 5 MG/5 ML VIAL IV PRN (15:00)
[2018-05-12] MEDS: hydrALAZINE 20 MG/1 ML VIAL IV PRN ×2 (15:07→23:50)
[2018-05-12] MEDS: CLINDAMYCIN INJ 900 MG in PREMIX 1 EACH IV SCH ×2 (15:15→23:59)
[2018-05-12] MEDS: FUROSEMIDE 40 MG/4 ML VIAL IV SCH (16:09)
[2018-05-12] MEDS: OLMESARTAN 20 MG TABLET PO SCH (16:11)
[2018-05-12] MEDS: ENOXAPARIN 40 MG/0.4 ML SYRINGE SUBCUT SCH (21:30)
[2018-05-12] MEDS: CARVEDILOL 25 MG TABLET PO SCH (22:34)
[2018-05-12] MEDS: TOPIRAMATE 100 MG TABLET PO SCH (22:34)
[2018-05-12] MEDS: AMITRIPTYLINE 100 MG TABLET PO SCH (22:34)
[2018-05-13] MEDS: MORPHINE 4 MG/1 ML VIAL IV PRN ×4 (00:40→19:32)
[2018-05-13] MEDS ORDERED: hydrALAZINE 20 MG/1 ML VIAL IV ONE (01:10)
[2018-05-13] MEDS: PROPOFOL 1,000 MG/100 ML BOTTLE IV SCH ×2 (02:20→19:41)
[2018-05-13 03:51] LABS: ABG Base Excess 2.3 MMOL/L (-2.5-2.5); ABG HCO3 26.6 MMOL/L (20-26); ABG Oxygen Saturation 97.8 % (95-100); ABG PH 7.441 (7.35-7.45); ABG PO2 109.4 MM HG (80-95); ABG TCO2 27.8 MMOL/L (23-27); Pt O2 Delivery Device Ventilator
[2018-05-13 05:55] LABS: Basophils % 0.2 % (0.0-0.8); Eosinophils % 0.1 % (0.00-10.9); Hematocrit 28.3 VOL% (35.7-47.0); Hemoglobin 8.7 GM/DL (12.0-16.0); Immature Granulocytes % 0.4 %; Immature Granulocytes Absolute 0.04 #; Lymphocytes # 1.2 10*3/uL (1.4-4.0); Lymphocytes % 12.6 % (21.3-54.2); Mean Corpuscular HGB Conc 30.7 GM/DL (32-36); Mean Corpuscular Hemoglobin 28 PG (27-34); Mean Platelet Volume 10.6 FL (9.6-12.0); Monocytes # 0.5 10*3/uL (0.11-0.8); Neutrophils # 7.8 10*3/uL (1.4-7.4); Neutrophils % 81.7 % (38.7-73.9); Platelet Count 240 T/CUMM (130-400); Red Blood Count 3.11 MC/CUMM (3.8-5.5); Red Cell Distribution Width 17.1 % (9.3-17.3); White Blood Count 9.6 T/CUMM (4-12)
[2018-05-13 06:17] LABS: Calcium 8.9 MG/DL (8.5-10.1); Osmolality,Calculated 288.8 MOS/KG (273-304); Potassium 3.4 MMOL/L (3.5-5.1)
[2018-05-13] MEDS: LACTATED RINGERS 1,000 ML IV SCH (07:05)
[2018-05-13] MEDS ORDERED: HYDROCODONE BITARTRATE 40 MG PO SCH (09:00)
[2018-05-13] MEDS ORDERED: ASPIRIN EC 81 MG TABLET PO SCH (09:00)
[2018-05-13] MEDS: OLMESARTAN 20 MG TABLET PO SCH (09:40)
[2018-05-13] MEDS: FOLIC ACID 1 MG TABLET PO SCH (09:41)
[2018-05-13] MEDS: CARVEDILOL 25 MG TABLET PO SCH ×2 (09:41→20:58)
[2018-05-13] MEDS: TOPIRAMATE 100 MG TABLET PO SCH ×2 (09:42→20:58)
[2018-05-13] MEDS: FUROSEMIDE 40 MG TABLET PO SCH (09:42)
[2018-05-13] MEDS: CLOPIDOGREL 75 MG TABLET PO SCH (09:42)
[2018-05-13 09:43] LABS: ABG Base Excess 2.1 MMOL/L (-2.5-2.5); ABG HCO3 26.3 MMOL/L (20-26); ABG Oxygen Saturation 97.6 % (95-100); ABG PCO2 42.1 MM HG (35-48); ABG PH 7.413 (7.35-7.45); ABG PO2 93.9 MM HG (80-95); ABG TCO2 24.9 MMOL/L (23-27)
[2018-05-13 10:53] LABS: ABG HCO3 26.2 MMOL/L (20-26); ABG Oxygen Saturation 96.8 % (95-100); ABG PCO2 43.5 MM HG (35-48); ABG PH 7.401 (7.35-7.45); ABG PO2 87.6 MM HG (80-95); Allen Test Positive
[2018-05-13] MEDS: ENOXAPARIN 40 MG/0.4 ML SYRINGE SUBCUT SCH ×2 (14:50→20:58)
[2018-05-13] MEDS: FUROSEMIDE 40 MG/4 ML VIAL IV SCH (14:50)
[2018-05-13] MEDS: hydrALAZINE 20 MG/1 ML VIAL IV PRN (16:11)
[2018-05-13] MEDS: AMITRIPTYLINE 100 MG TABLET PO SCH (20:58)
[2018-05-13] MEDS: CYCLOBENZAPRINE 10 MG TABLET PO PRN (21:01)
[2018-05-14 03:44] LABS: ABG Base Excess 2.2 MMOL/L (-2.5-2.5); ABG HCO3 26.3 MMOL/L (20-26); ABG Oxygen Saturation 96.5 % (95-100); ABG PCO2 48.2 MM HG (35-48); ABG PO2 85.8 MM HG (80-95); Allen Test Positive
[2018-05-14] MEDS: MORPHINE 4 MG/1 ML VIAL IV PRN ×3 (03:50→20:52)
[2018-05-14] MEDS ORDERED: LACTATED RINGERS 250 ML IV ONE (04:44)
[2018-05-14] MEDS: LACTATED RINGERS 1,000 ML IV SCH ×2 (05:51→19:56)
[2018-05-14 06:14] LABS: Basophils % 0.2 % (0.0-0.8); Eosinophils % 0.2 % (0.00-10.9); Hematocrit 24.8 VOL% (35.7-47.0); Hemoglobin 7.6 GM/DL (12.0-16.0); Immature Granulocytes % 0.5 %; Immature Granulocytes Absolute 0.05 #; Lymphocytes # 2.1 10*3/uL (1.4-4.0); Lymphocytes % 22.1 % (21.3-54.2); Mean Corpuscular HGB Conc 30.6 GM/DL (32-36); Mean Corpuscular Hemoglobin 29 PG (27-34); Mean Corpuscular Volume 93.2 FL (87-102); Mean Platelet Volume 11.3 FL (9.6-12.0); Monocytes # 0.7 10*3/uL (0.11-0.8); Monocytes % 7.3 % (1.7-12.7); Neutrophils # 6.7 10*3/uL (1.4-7.4); Neutrophils % 69.7 % (38.7-73.9); Platelet Count 191 T/CUMM (130-400); Red Blood Count 2.66 MC/CUMM (3.8-5.5); White Blood Count 9.6 T/CUMM (4-12)
[2018-05-14 06:24] LABS: Calcium 8.5 MG/DL (8.5-10.1); Potassium 3.5 MMOL/L (3.5-5.1)
[2018-05-14] MEDS: CLOPIDOGREL 75 MG TABLET PO SCH (08:46)
[2018-05-14] MEDS: FOLIC ACID 1 MG TABLET PO SCH (08:46)
[2018-05-14] MEDS: FUROSEMIDE 40 MG/4 ML VIAL IV SCH (08:46)
[2018-05-14] MEDS: FUROSEMIDE 40 MG TABLET PO SCH (08:47)
[2018-05-14] MEDS: CARVEDILOL 25 MG TABLET PO SCH ×2 (08:48→21:49)
[2018-05-14] MEDS: OLMESARTAN 20 MG TABLET PO SCH (08:48)
[2018-05-14] MEDS: TOPIRAMATE 100 MG TABLET PO SCH ×2 (08:56→21:49)
[2018-05-14] MEDS ORDERED: SODIUM CHLORIDE 0.9% 1,000 ML IV PRN (09:35)
[2018-05-14] MEDS: ALBUTEROL/IPRATROPIUM 3 ML NEB RESP TX SCH ×4 (11:01→23:31)
[2018-05-14 20:17] LABS: Hematocrit 28.5 VOL% (35.7-47.0)
[2018-05-14] MEDS: AMITRIPTYLINE 100 MG TABLET PO SCH (21:49)
[2018-05-14] MEDS: ENOXAPARIN 40 MG/0.4 ML SYRINGE SUBCUT SCH (21:50)
[2018-05-15 04:00] LABS: ABG Base Excess 2.7 MMOL/L (-2.5-2.5); ABG HCO3 26.8 MMOL/L (20-26); ABG Oxygen Saturation 96.8 % (95-100); ABG PCO2 51.9 MM HG (35-48); ABG PH 7.354 (7.35-7.45); ABG TCO2 26.9 MMOL/L (23-27); Allen Test Positive; Pt O2 Delivery Device BIPAP
[2018-05-15 04:27] LABS: Basophils % 0.2 % (0.0-0.8); Eosinophils # 0.2 10*3/uL (0.0-0.87); Eosinophils % 2.3 % (0.00-10.9); Hemoglobin 8.3 GM/DL (12.0-16.0); Immature Granulocytes % 0.4 %; Immature Granulocytes Absolute 0.03 #; Lymphocytes # 2.1 10*3/uL (1.4-4.0); Lymphocytes % 24.5 % (21.3-54.2); Mean Corpuscular HGB Conc 30.7 GM/DL (32-36); Mean Corpuscular Hemoglobin 28 PG (27-34); Mean Corpuscular Volume 91.8 FL (87-102); Mean Platelet Volume 10.7 FL (9.6-12.0); Monocytes # 0.7 10*3/uL (0.11-0.8); Monocytes % 8.6 % (1.7-12.7); Neutrophils # 5.5 10*3/uL (1.4-7.4); Platelet Count 183 T/CUMM (130-400); Red Blood Count 2.94 MC/CUMM (3.8-5.5); White Blood Count 8.6 T/CUMM (4-12)
[2018-05-15] MEDS: ALBUTEROL/IPRATROPIUM 3 ML NEB RESP TX SCH ×6 (04:30→23:28)
[2018-05-15 04:51] LABS: Calcium 8.9 MG/DL (8.5-10.1); Osmolality,Calculated 282.4 MOS/KG (273-304); Potassium 3.5 MMOL/L (3.5-5.1)
[2018-05-15] MEDS: CYCLOBENZAPRINE 10 MG TABLET PO PRN ×2 (05:07→21:10)
[2018-05-15] MEDS ORDERED: ALBUTEROL/IPRATROPIUM 3 ML NEB RESP TX PRN (07:00)
[2018-05-15] MEDS: MORPHINE 4 MG/1 ML VIAL IV PRN ×2 (07:35→19:13)
[2018-05-15] MEDS: FUROSEMIDE 40 MG/4 ML VIAL IV SCH (09:27)
[2018-05-15] MEDS: FUROSEMIDE 40 MG TABLET PO SCH (09:28)
[2018-05-15] MEDS: TOPIRAMATE 100 MG TABLET PO SCH ×2 (09:28→21:02)
[2018-05-15] MEDS: CARVEDILOL 25 MG TABLET PO SCH ×2 (09:28→21:01)
[2018-05-15] MEDS: CLOPIDOGREL 75 MG TABLET PO SCH (09:28)
[2018-05-15] MEDS: FOLIC ACID 1 MG TABLET PO SCH (09:28)
[2018-05-15] MEDS: OLMESARTAN 20 MG TABLET PO SCH (09:28)
[2018-05-15] MEDS: LACTATED RINGERS 1,000 ML IV SCH ×2 (09:29→16:56)
[2018-05-15] MEDS: AMITRIPTYLINE 100 MG TABLET PO SCH (21:01)
[2018-05-15] MEDS: ENOXAPARIN 40 MG/0.4 ML SYRINGE SUBCUT SCH (21:02)
[2018-05-16] MEDS: MORPHINE 4 MG/1 ML VIAL IV PRN ×2 (00:31→20:22)
[2018-05-16] MEDS: LACTATED RINGERS 1,000 ML IV SCH (00:38)
[2018-05-16] MEDS: ALBUTEROL/IPRATROPIUM 3 ML NEB RESP TX SCH ×5 (02:54→19:29)
[2018-05-16 04:00] LABS: Calcium 9.4 MG/DL (8.5-10.1); Osmolality,Calculated 282.4 MOS/KG (273-304); Potassium 3.8 MMOL/L (3.5-5.1)
[2018-05-16 09:26] LABS: Basophils % 0.3 % (0.0-0.8); Eosinophils # 0.2 10*3/uL (0.0-0.87); Eosinophils % 3.2 % (0.00-10.9); Hematocrit 30.1 VOL% (35.7-47.0); Hemoglobin 9.1 GM/DL (12.0-16.0); Immature Granulocytes % 0.3 %; Immature Granulocytes Absolute 0.02 #; Lymphocytes # 1.9 10*3/uL (1.4-4.0); Lymphocytes % 26.3 % (21.3-54.2); Mean Corpuscular HGB Conc 30.2 GM/DL (32-36); Mean Corpuscular Hemoglobin 28 PG (27-34); Mean Corpuscular Volume 92.6 FL (87-102); Mean Platelet Volume 9.9 FL (9.6-12.0); Monocytes # 0.6 10*3/uL (0.11-0.8); Monocytes % 8.8 % (1.7-12.7); Neutrophils # 4.4 10*3/uL (1.4-7.4); Neutrophils % 61.1 % (38.7-73.9); Platelet Count 224 T/CUMM (130-400); Red Blood Count 3.25 MC/CUMM (3.8-5.5); Red Cell Distribution Width 17.2 % (9.3-17.3); White Blood Count 7.1 T/CUMM (4-12)
[2018-05-16] MEDS: FUROSEMIDE 40 MG/4 ML VIAL IV SCH (09:35)
[2018-05-16] MEDS: FOLIC ACID 1 MG TABLET PO SCH (09:51)
[2018-05-16] MEDS: TOPIRAMATE 100 MG TABLET PO SCH ×2 (09:51→20:21)
[2018-05-16] MEDS: CLOPIDOGREL 75 MG TABLET PO SCH (09:51)
[2018-05-16] MEDS: FUROSEMIDE 40 MG TABLET PO SCH (09:51)
[2018-05-16] MEDS: CARVEDILOL 25 MG TABLET PO SCH ×2 (09:52→20:21)
[2018-05-16] MEDS: OLMESARTAN 20 MG TABLET PO SCH (09:52)
[2018-05-16 15:17] LABS: Apearance,Urine CLOUDY (Clear); Bacteria,Urine Many /HPF (Few); Bilirubin,Urine Negative (Negative); Blood, Urine Moderate mg/dL (Negative); Glucose,Urine (UA) Negative (Negative); Ketones,Urine Negative (Negative); Mucus,Urine Many /LPF (Occasional); Nitrite,Urine Negative (Negative); Protein,Urine Negative; RBC,Urine 27 /HPF (0-4); Squamous Epithelial Cell,Urine Occasional /HPF (0-10); Urine Color Yellow (Yellow); Urine Specific Gravity 1.016 (1.001-1.035); WBC,Urine 357 /HPF (0-6)
[2018-05-16] MEDS: CYCLOBENZAPRINE 10 MG TABLET PO PRN (20:21)
[2018-05-16] MEDS: AMITRIPTYLINE 100 MG TABLET PO SCH (20:22)
[2018-05-16] MEDS: ENOXAPARIN 40 MG/0.4 ML SYRINGE SUBCUT SCH (20:22)
[2018-05-17] MEDS: ALBUTEROL/IPRATROPIUM 3 ML NEB RESP TX SCH ×7 (00:23→22:48)
[2018-05-17 06:34] LABS: Calcium 9.6 MG/DL (8.5-10.1); Osmolality,Calculated 284.3 MOS/KG (273-304); Potassium 3.3 MMOL/L (3.5-5.1)
[2018-05-17 08:56] LABS: Basophils % 0.5 % (0.0-0.8); Eosinophils # 0.2 10*3/uL (0.0-0.87); Eosinophils % 3.8 % (0.00-10.9); Hemoglobin 8.9 GM/DL (12.0-16.0); Immature Granulocytes % 0.7 %; Immature Granulocytes Absolute 0.04 #; Lymphocytes # 1.7 10*3/uL (1.4-4.0); Lymphocytes % 27.5 % (21.3-54.2); Mean Corpuscular HGB Conc 29.7 GM/DL (32-36); Mean Corpuscular Hemoglobin 28 PG (27-34); Mean Corpuscular Volume 94.9 FL (87-102); Mean Platelet Volume 10.2 FL (9.6-12.0); Monocytes # 0.8 10*3/uL (0.11-0.8); Monocytes % 13.1 % (1.7-12.7); Neutrophils # 3.3 10*3/uL (1.4-7.4); Neutrophils % 54.4 % (38.7-73.9); Platelet Count 260 T/CUMM (130-400); Red Blood Count 3.16 MC/CUMM (3.8-5.5); Red Cell Distribution Width 16.9 % (9.3-17.3); White Blood Count 6.1 T/CUMM (4-12)
[2018-05-17] MEDS: FOLIC ACID 1 MG TABLET PO SCH (09:22)
[2018-05-17] MEDS: OLMESARTAN 20 MG TABLET PO SCH (09:22)
[2018-05-17] MEDS: TOPIRAMATE 100 MG TABLET PO SCH ×2 (09:22→20:46)
[2018-05-17] MEDS: CARVEDILOL 25 MG TABLET PO SCH ×2 (09:22→20:45)
[2018-05-17] MEDS: FUROSEMIDE 40 MG TABLET PO SCH (09:22)
[2018-05-17] MEDS: CLOPIDOGREL 75 MG TABLET PO SCH (09:22)
[2018-05-17] MEDS: POTASSIUM CHLORIDE 20 MEQ TABLET PO SCH ×2 (11:02→20:46)
[2018-05-17] MEDS: cefTRIAXone 2,000 MG in SYRINGE 1 EACH IV SCH (11:02)
[2018-05-17] MEDS: ENOXAPARIN 40 MG/0.4 ML SYRINGE SUBCUT SCH (20:45)
[2018-05-17] MEDS: AMITRIPTYLINE 100 MG TABLET PO SCH (20:46)
[2018-05-18] MEDS: ALBUTEROL/IPRATROPIUM 3 ML NEB RESP TX SCH ×4 (03:28→16:03)
[2018-05-18] MEDS: OLMESARTAN 20 MG TABLET PO SCH (10:14)
[2018-05-18] MEDS: FOLIC ACID 1 MG TABLET PO SCH (10:14)
[2018-05-18] MEDS: CARVEDILOL 25 MG TABLET PO SCH (10:15)
[2018-05-18] MEDS: TOPIRAMATE 100 MG TABLET PO SCH (10:15)
[2018-05-18] MEDS: POTASSIUM CHLORIDE 20 MEQ TABLET PO SCH (10:15)
[2018-05-18] MEDS: FUROSEMIDE 40 MG TABLET PO SCH (10:15)
[2018-05-18] MEDS: CLOPIDOGREL 75 MG TABLET PO SCH (10:15)
[2018-05-18] MEDS: NYSTATIN 500,000 UNIT/5 ML UDCUP SWISH/SWAL SCH ×2 (10:15→13:15)
[2018-05-18 11:37] VITALS: BP 179/118
[2018-05-18 11:55] LABS: Basophils % 0.4 % (0.0-0.8); Eosinophils # 0.2 10*3/uL (0.0-0.87); Eosinophils % 2.5 % (0.00-10.9); Hematocrit 28.9 VOL% (35.7-47.0); Hemoglobin 8.8 GM/DL (12.0-16.0); Immature Granulocytes % 0.8 %; Immature Granulocytes Absolute 0.06 #; Lymphocytes # 1.7 10*3/uL (1.4-4.0); Lymphocytes % 22.1 % (21.3-54.2); Mean Corpuscular HGB Conc 30.4 GM/DL (32-36); Mean Corpuscular Hemoglobin 29 PG (27-34); Mean Corpuscular Volume 93.5 FL (87-102); Mean Platelet Volume 9.8 FL (9.6-12.0); Monocytes # 0.9 10*3/uL (0.11-0.8); Monocytes % 11.3 % (1.7-12.7); Neutrophils % 62.9 % (38.7-73.9); Platelet Count 302 T/CUMM (130-400); Red Blood Count 3.09 MC/CUMM (3.8-5.5); Red Cell Distribution Width 16.8 % (9.3-17.3); White Blood Count 7.9 T/CUMM (4-12)
[2018-05-18 12:29] LABS: Calcium 9.6 MG/DL (8.5-10.1); Osmolality,Calculated 282.3 MOS/KG (273-304); Potassium 3.7 MMOL/L (3.5-5.1)
[2018-05-18] MEDS: cefTRIAXone 2,000 MG in SYRINGE 1 EACH IV SCH (12:43)
== END 2018-05-18 15:55 | disposition home or self-care (01) | DRG 483 ==
LOC: N.OR 05:49 → N.SDSINP 05:51 → N.3E 10:29 → N.CC 11:09 → N.3E 05-15 13:06
PROVIDERS: ADMIT Orthopaedic Surgery; ATTEND Orthopaedic Surgery

== ENCOUNTER 2018-05-23 21:01 | Observation (INO) ==
[2018-05-23 22:23] LABS: Basophils % 0.5 % (0.0-0.8); Eosinophils # 0.2 10*3/uL (0.0-0.87); Eosinophils % 2.4 % (0.00-10.9); Hematocrit 32.8 VOL% (35.7-47.0); Hemoglobin 9.7 GM/DL (12.0-16.0); Immature Granulocytes % 1.1 %; Immature Granulocytes Absolute 0.09 #; Lymphocytes # 2.3 10*3/uL (1.4-4.0); Lymphocytes % 27.2 % (21.3-54.2); Mean Corpuscular HGB Conc 29.6 GM/DL (32-36); Mean Corpuscular Hemoglobin 27 PG (27-34); Mean Corpuscular Volume 92.7 FL (87-102); Monocytes # 0.7 10*3/uL (0.11-0.8); Monocytes % 8.6 % (1.7-12.7); Neutrophils % 60.2 % (38.7-73.9); Platelet Count 581 T/CUMM (130-400); Red Blood Count 3.54 MC/CUMM (3.8-5.5); Red Cell Distribution Width 16.6 % (9.3-17.3); White Blood Count 8.3 T/CUMM (4-12)
[2018-05-23 22:46] LABS: Alanine Aminotransferase 17 U/L (13-56); Albumin 2.6 G/DL (3.4-5.0); Alkaline Phosphatase 74 U/L (45-117); Aspartate Amino Transferase 13 U/L (0-37); Bilirubin,Total < 0.39 MG/DL (0.2-1.0); Blood Urea Nitrogen 8 MG/DL (7-18); Calcium 9.6 MG/DL (8.5-10.1); Glucose 114 MG/DL (74-106); Osmolality,Calculated 284.8 MOS/KG (273-304); Potassium 3.8 MMOL/L (3.5-5.1); Sodium 144 MMOL/L (136-145)
[2018-05-23] MEDS ORDERED: ONDANSETRON 4 MG/2 ML VIAL IV PRN (23:09)
[2018-05-24] MEDS: HYDROmorphone 2 MG/1 ML VIAL IV PRN ×4 (00:38→20:56)
[2018-05-24 05:06] LABS: Basophils % 0.4 % (0.0-0.8); Eosinophils # 0.2 10*3/uL (0.0-0.87); Eosinophils % 2.5 % (0.00-10.9); Hematocrit 32.2 VOL% (35.7-47.0); Hemoglobin 9.7 GM/DL (12.0-16.0); Immature Granulocytes % 1.1 %; Lymphocytes # 2.9 10*3/uL (1.4-4.0); Lymphocytes % 31.1 % (21.3-54.2); Mean Corpuscular HGB Conc 30.1 GM/DL (32-36); Mean Corpuscular Hemoglobin 28 PG (27-34); Mean Platelet Volume 9.2 FL (9.6-12.0); Monocytes # 0.9 10*3/uL (0.11-0.8); Monocytes % 9.7 % (1.7-12.7); Neutrophils # 5.2 10*3/uL (1.4-7.4); Neutrophils % 55.2 % (38.7-73.9); Platelet Count 616 T/CUMM (130-400); Red Cell Distribution Width 16.9 % (9.3-17.3); White Blood Count 9.5 T/CUMM (4-12)
[2018-05-24 05:26] LABS: Hypochromasia 1+; Ovalocytes Slight; Platelet Estimate Increased
[2018-05-24 05:41] LABS: Albumin 2.6 G/DL (3.4-5.0); Bilirubin,Total 0.4 MG/DL (0.2-1.0); Calcium 9.9 MG/DL (8.5-10.1); Osmolality,Calculated 285.8 MOS/KG (273-304); Potassium 3.6 MMOL/L (3.5-5.1); Total Protein 6.9 G/DL (6.4-8.3)
[2018-05-24] MEDS ORDERED: BACLOFEN 10 MG TABLET PO PRN (08:49)
[2018-05-24] MEDS: PANTOPRAZOLE 40 MG TABLET PO SCH (08:54)
[2018-05-24] MEDS: CLOPIDOGREL 75 MG TABLET PO SCH (10:39)
[2018-05-24] MEDS: ASPIRIN EC 81 MG TABLET PO SCH (10:39)
[2018-05-24] MEDS: TOPIRAMATE 100 MG TABLET PO SCH ×2 (10:39→20:57)
[2018-05-24] MEDS: FOLIC ACID 1 MG TABLET PO SCH (10:39)
[2018-05-24] MEDS: OLMESARTAN 20 MG TABLET PO SCH (10:39)
[2018-05-24] MEDS: CARVEDILOL 25 MG TABLET PO SCH ×2 (10:40→20:57)
[2018-05-24] MEDS: SODIUM CHLORIDE 0.9% 1,000 ML IV SCH (10:40)
[2018-05-24] MEDS: AMITRIPTYLINE 100 MG TABLET PO SCH (20:57)
[2018-05-25] MEDS ORDERED: METHOTREXATE 2.5 MG TABLET PO SCH
[2018-05-25] MEDS ORDERED: SODIUM CHLORIDE 0.9% 500 ML IV ONE (00:02)
[2018-05-25] MEDS: SODIUM CHLORIDE 0.9% 1,000 ML IV SCH (00:53)
[2018-05-25] MEDS: HYDROmorphone 2 MG/1 ML VIAL IV PRN ×3 (05:54→20:38)
[2018-05-25 06:00] LABS: Apearance,Urine Slightly Hazy (Clear); Bacteria,Urine Few /HPF (Few); Bilirubin,Urine Negative (Negative); Blood, Urine Negative (Negative); Glucose,Urine (UA) Negative (Negative); Hyaline Casts,Urine 1 /LPF (0-3); Ketones,Urine Negative (Negative); Mucus,Urine Few /LPF (Occasional); Nitrite,Urine Negative (Negative); Protein,Urine Negative; RBC,Urine 15 /HPF (0-4); Squamous Epithelial Cell,Urine Occasional /HPF (0-10); Urine Color Yellow (Yellow); Urine Specific Gravity 1.012 (1.001-1.035); Urine Urobilinogen < 2.0 EU/DL (0.2-1.0); WBC,Urine 1 /HPF (0-6)
[2018-05-25] MEDS: CLOPIDOGREL 75 MG TABLET PO SCH (09:53)
[2018-05-25] MEDS: OLMESARTAN 20 MG TABLET PO SCH (09:54)
[2018-05-25] MEDS: TOPIRAMATE 100 MG TABLET PO SCH ×2 (09:55→20:37)
[2018-05-25] MEDS: FOLIC ACID 1 MG TABLET PO SCH (09:55)
[2018-05-25] MEDS: PANTOPRAZOLE 40 MG TABLET PO SCH (09:55)
[2018-05-25] MEDS: CARVEDILOL 25 MG TABLET PO SCH ×2 (09:55→20:37)
[2018-05-25] MEDS: ASPIRIN EC 81 MG TABLET PO SCH (09:55)
[2018-05-25] MEDS: AMITRIPTYLINE 100 MG TABLET PO SCH (20:37)
[2018-05-26] MEDS: SODIUM CHLORIDE 0.9% 1,000 ML IV SCH ×2 (00:53→09:18)
[2018-05-26] MEDS: HYDROmorphone 2 MG/1 ML VIAL IV PRN ×2 (09:16→17:40)
[2018-05-26] MEDS: PANTOPRAZOLE 40 MG TABLET PO SCH (09:17)
[2018-05-26] MEDS: CLOPIDOGREL 75 MG TABLET PO SCH (09:17)
[2018-05-26] MEDS: FOLIC ACID 1 MG TABLET PO SCH (09:17)
[2018-05-26] MEDS: OLMESARTAN 20 MG TABLET PO SCH (09:17)
[2018-05-26] MEDS: TOPIRAMATE 100 MG TABLET PO SCH ×2 (09:17→20:20)
[2018-05-26] MEDS: CARVEDILOL 25 MG TABLET PO SCH ×2 (09:17→20:20)
[2018-05-26] MEDS: ASPIRIN EC 81 MG TABLET PO SCH (09:17)
[2018-05-26] MEDS: AMITRIPTYLINE 100 MG TABLET PO SCH (20:20)
[2018-05-27] MEDS: SODIUM CHLORIDE 0.9% 1,000 ML IV SCH ×2 (02:09→10:32)
[2018-05-27] MEDS: HYDROmorphone 2 MG/1 ML VIAL IV PRN ×3 (02:10→21:30)
[2018-05-27] MEDS: CLOPIDOGREL 75 MG TABLET PO SCH (08:50)
[2018-05-27] MEDS: OLMESARTAN 20 MG TABLET PO SCH (08:50)
[2018-05-27] MEDS: CARVEDILOL 25 MG TABLET PO SCH ×2 (08:51→21:24)
[2018-05-27] MEDS: TOPIRAMATE 100 MG TABLET PO SCH ×2 (08:51→21:24)
[2018-05-27] MEDS: ASPIRIN EC 81 MG TABLET PO SCH (08:51)
[2018-05-27] MEDS: FOLIC ACID 1 MG TABLET PO SCH (08:51)
[2018-05-27] MEDS: PANTOPRAZOLE 40 MG TABLET PO SCH (08:51)
[2018-05-27] MEDS: AMITRIPTYLINE 100 MG TABLET PO SCH (21:24)
[2018-05-28] MEDS: SODIUM CHLORIDE 0.9% 1,000 ML IV SCH ×2 (03:30→17:24)
[2018-05-28] MEDS: HYDROmorphone 2 MG/1 ML VIAL IV PRN ×3 (03:35→17:20)
[2018-05-28] MEDS: OLMESARTAN 20 MG TABLET PO SCH (10:37)
[2018-05-28] MEDS: ASPIRIN EC 81 MG TABLET PO SCH (10:38)
[2018-05-28] MEDS: CARVEDILOL 25 MG TABLET PO SCH (10:38)
[2018-05-28] MEDS: TOPIRAMATE 100 MG TABLET PO SCH (10:38)
[2018-05-28] MEDS: FOLIC ACID 1 MG TABLET PO SCH (10:38)
[2018-05-28] MEDS: PANTOPRAZOLE 40 MG TABLET PO SCH (10:38)
[2018-05-28] MEDS: CLOPIDOGREL 75 MG TABLET PO SCH (10:38)
[2018-05-28 19:09] VITALS: BP 135/103
== END 2018-05-28 21:30 ==
LOC: EDUNIT# → EDBD → N.ED 21:01 → N.EDINP 21:01 → N.3E 22:33
PROVIDERS: ADMIT Family Medicine; ATTEND Family Medicine

== ENCOUNTER 2018-08-02 15:16 | Observation (INO) ==
[2018-08-02] MEDS ORDERED: ONDANSETRON 4 MG/2 ML VIAL IV STA (16:01)
[2018-08-02] MEDS ORDERED: SODIUM CHLORIDE 0.9% 500 ML IV STA (16:01)
[2018-08-02] MEDS ORDERED: MECLIZINE 25 MG TABLET PO STA (16:01)
[2018-08-02 16:31] LABS: Basophils % 0.4 % (0.0-0.8); Eosinophils # 0.2 10*3/uL (0.0-0.87); Eosinophils % 2.7 % (0.00-10.9); Hematocrit 35.7 VOL% (35.7-47.0); Hemoglobin 10.9 GM/DL (12.0-16.0); Immature Granulocytes % 0.3 %; Immature Granulocytes Absolute 0.02 #; Lymphocytes # 2.8 10*3/uL (1.4-4.0); Lymphocytes % 39.4 % (21.3-54.2); Mean Corpuscular HGB Conc 30.5 GM/DL (32-36); Mean Corpuscular Hemoglobin 28 PG (27-34); Mean Corpuscular Volume 91.3 FL (87-102); Mean Platelet Volume 9.9 FL (9.6-12.0); Monocytes # 0.4 10*3/uL (0.11-0.8); Monocytes % 4.9 % (1.7-12.7); Neutrophils # 3.7 10*3/uL (1.4-7.4); Neutrophils % 52.3 % (38.7-73.9); Platelet Count 295 T/CUMM (130-400); Red Blood Count 3.91 MC/CUMM (3.8-5.5); Red Cell Distribution Width 16.9 % (9.3-17.3); White Blood Count 7.1 T/CUMM (4-12)
[2018-08-02 16:42] LABS: INR 1.1
[2018-08-02 17:03] LABS: Albumin 3.6 G/DL (3.4-5.0); Bilirubin,Total 0.4 MG/DL (0.2-1.0); Calcium 9.1 MG/DL (8.5-10.1); Osmolality,Calculated 284.1 MOS/KG (273-304); Potassium 3.5 MMOL/L (3.5-5.1); Thyroid Stimulating Hormone 3.11 uIU/ml (0.358-3.74); Total Protein 7.1 G/DL (6.4-8.3)
[2018-08-02 17:16] LABS: Apearance,Urine CLEAR (Clear); Bilirubin,Urine Negative (Negative); Blood, Urine Negative (Negative); Glucose,Urine (UA) Negative (Negative); Hyaline Casts,Urine 27 /LPF (0-3); Ketones,Urine Negative (Negative); Mucus,Urine Occasional /LPF (Occasional); Nitrite,Urine Negative (Negative); Protein,Urine Negative; Squamous Epithelial Cell,Urine Occasional /HPF (0-10); Urine Color Straw (Yellow); Urine Urobilinogen < 2.0 EU/DL (0.2-1.0); WBC,Urine <1 /HPF (0-6)
[2018-08-02] MEDS ORDERED: ASPIRIN EC 325 MG TABLET PO STA (17:35)
[2018-08-02 18:00] LABS: Sedimentation Rate-Westergren 20 MM/HR (0-30)
[2018-08-02 19:01] LABS: Barbiturates Screen,Urine Negative (Negative); Benzodiazepines Screen,Urine Negative (Negative); Cannabinoid Screen,Urine Negative (Negative); Opiate Screen,Urine Positive (Negative); Phencyclidine Screen,Urine Negative (Negative)
[2018-08-02] MEDS ORDERED: DEXTROSE 50% 25 GM/50 ML VIAL IV PRN (19:30)
[2018-08-02] MEDS ORDERED: GLUCAGON 1 MG VIAL IM PRN (19:30)
[2018-08-02] MEDS ORDERED: ONDANSETRON 4 MG/2 ML VIAL IV PRN (19:30)
[2018-08-02] MEDS ORDERED: ACETAMINOPHEN 325 MG TABLET PO PRN (19:30)
[2018-08-02] MEDS ORDERED: MORPHINE 4 MG/1 ML VIAL IV PRN (19:30)
[2018-08-02] MEDS: SODIUM CHLORIDE 0.9% 1,000 ML IV SCH (21:40)
[2018-08-02] MEDS: ENOXAPARIN 40 MG/0.4 ML SYRINGE SUBCUT SCH (21:43)
[2018-08-02] MEDS: DOCUSATE SODIUM 100 MG CAPSULE PO SCH (21:44)
[2018-08-02] MEDS: INSULIN REGULAR 100 UNIT/ML SUBCUT SCH (23:16)
[2018-08-03] MEDS: INSULIN REGULAR 100 UNIT/ML SUBCUT SCH ×4 (00:28→17:25)
[2018-08-03 04:08] LABS: Basophils % 0.3 % (0.0-0.8); Eosinophils # 0.2 10*3/uL (0.0-0.87); Eosinophils % 2.7 % (0.00-10.9); Hematocrit 36.2 VOL% (35.7-47.0); Hemoglobin 10.1 GM/DL (12.0-16.0); Immature Granulocytes % 0.4 %; Immature Granulocytes Absolute 0.03 #; Lymphocytes # 3.4 10*3/uL (1.4-4.0); Lymphocytes % 44.9 % (21.3-54.2); Mean Corpuscular HGB Conc 27.9 GM/DL (32-36); Mean Corpuscular Hemoglobin 27 PG (27-34); Mean Corpuscular Volume 95.3 FL (87-102); Monocytes # 0.4 10*3/uL (0.11-0.8); Monocytes % 5.2 % (1.7-12.7); Neutrophils # 3.5 10*3/uL (1.4-7.4); Neutrophils % 46.5 % (38.7-73.9); Platelet Count 303 T/CUMM (130-400); Red Cell Distribution Width 17.2 % (9.3-17.3); White Blood Count 7.5 T/CUMM (4-12)
[2018-08-03 04:44] LABS: Alanine Aminotransferase 16 U/L (13-56); Albumin 3.2 G/DL (3.4-5.0); Alkaline Phosphatase 75 U/L (45-117); Aspartate Amino Transferase 16 U/L (0-37); Bilirubin,Total < 0.39 MG/DL (0.2-1.0); Blood Urea Nitrogen 16 MG/DL (7-18); Calcium 9.4 MG/DL (8.5-10.1); Cholesterol 262 MG/DL (50-200); Glucose 112 MG/DL (74-106); HDL Cholesterol 54 MG/DL (40-60); Potassium 3.7 MMOL/L (3.5-5.1); Risk Ratio 4.85; Sodium 143 MMOL/L (136-145); Total Protein 7.1 G/DL (6.4-8.3); Triglycerides 171 MG/DL (2-150); VLDL CHOLESTEROL 34.2 MG/DL
[2018-08-03 04:50] LABS: Hypochromasia 1+; Microcytosis 1+; Platelet Estimate Normal; Polychromasia Few
[2018-08-03] MEDS ORDERED: traMADol 50 MG TABLET PO PRN (07:28)
[2018-08-03] MEDS: PANTOPRAZOLE 40 MG VIAL IV SCH (09:51)
[2018-08-03] MEDS: DOCUSATE SODIUM 100 MG CAPSULE PO SCH ×2 (09:51→21:30)
[2018-08-03] MEDS ORDERED: CYCLOBENZAPRINE 10 MG TABLET PO PRN (12:45)
[2018-08-03] MEDS ORDERED: METHOTREXATE 2.5 MG TABLET PO SCH (13:00)
[2018-08-03] MEDS: SODIUM CHLORIDE 0.9% 1,000 ML IV SCH (13:39)
[2018-08-03] MEDS: TOPIRAMATE 100 MG TABLET PO SCH (21:26)
[2018-08-03] MEDS: AMITRIPTYLINE 100 MG TABLET PO SCH (21:28)
[2018-08-03] MEDS: CARVEDILOL 25 MG TABLET PO SCH (21:28)
[2018-08-03] MEDS: ENOXAPARIN 40 MG/0.4 ML SYRINGE SUBCUT SCH (21:28)
[2018-08-04] MEDS: INSULIN REGULAR 100 UNIT/ML SUBCUT SCH ×3 (00:15→12:32)
[2018-08-04] MEDS: OLMESARTAN 20 MG TABLET PO SCH (08:26)
[2018-08-04] MEDS: FUROSEMIDE 40 MG TABLET PO SCH (08:26)
[2018-08-04] MEDS: TOPIRAMATE 100 MG TABLET PO SCH ×2 (08:26→21:43)
[2018-08-04] MEDS: CLOPIDOGREL 75 MG TABLET PO SCH (08:27)
[2018-08-04] MEDS: ASPIRIN EC 81 MG TABLET PO SCH (08:27)
[2018-08-04] MEDS: CARVEDILOL 25 MG TABLET PO SCH ×2 (08:27→21:44)
[2018-08-04] MEDS: DOCUSATE SODIUM 100 MG CAPSULE PO SCH ×2 (08:27→21:43)
[2018-08-04] MEDS: FOLIC ACID 1 MG TABLET PO SCH (08:27)
[2018-08-04] MEDS: PANTOPRAZOLE 40 MG VIAL IV SCH (08:30)
[2018-08-04] MEDS: AMITRIPTYLINE 100 MG TABLET PO SCH (21:43)
[2018-08-04] MEDS: ENOXAPARIN 40 MG/0.4 ML SYRINGE SUBCUT SCH (21:46)
[2018-08-05] MEDS: TOPIRAMATE 100 MG TABLET PO SCH (08:45)
[2018-08-05] MEDS: CARVEDILOL 25 MG TABLET PO SCH (08:46)
[2018-08-05] MEDS: OLMESARTAN 20 MG TABLET PO SCH (08:46)
[2018-08-05] MEDS: FUROSEMIDE 40 MG TABLET PO SCH (08:46)
[2018-08-05] MEDS: CLOPIDOGREL 75 MG TABLET PO SCH (08:46)
[2018-08-05] MEDS: FOLIC ACID 1 MG TABLET PO SCH (08:46)
[2018-08-05] MEDS: DOCUSATE SODIUM 100 MG CAPSULE PO SCH (08:46)
[2018-08-05] MEDS: ASPIRIN EC 81 MG TABLET PO SCH (08:47)
[2018-08-05] MEDS: PANTOPRAZOLE 40 MG VIAL IV SCH (08:47)
[2018-08-05 11:21] VITALS: BP 128/68
== END 2018-08-05 17:11 | disposition home health service (06) ==
LOC: N.ED 15:16 → INTOOBSV 17:28 → N.EDINP 17:28 → N.TELES 18:59
PROVIDERS: ADMIT Family Medicine; ATTEND Family Medicine

== ENCOUNTER 2018-09-04 03:15 | Observation (INO) ==
[2018-09-04] MEDS ORDERED: HYDROmorphone 2 MG/1 ML VIAL IV STA (03:46)
[2018-09-04] MEDS ORDERED: ONDANSETRON 4 MG/2 ML VIAL IV STA (03:47)
[2018-09-04 04:20] LABS: Basophils % 0.5 % (0.0-0.8); Eosinophils # 0.1 10*3/uL (0.0-0.87); Eosinophils % 1.9 % (0.00-10.9); Hematocrit 33.3 VOL% (35.7-47.0); Hemoglobin 10.2 GM/DL (12.0-16.0); Immature Granulocytes % 0.2 %; Immature Granulocytes Absolute 0.01 #; Lymphocytes # 2.3 10*3/uL (1.4-4.0); Lymphocytes % 52.2 % (21.3-54.2); Mean Corpuscular HGB Conc 30.6 GM/DL (32-36); Mean Corpuscular Hemoglobin 28 PG (27-34); Mean Corpuscular Volume 91.7 FL (87-102); Mean Platelet Volume 9.5 FL (9.6-12.0); Monocytes # 0.1 10*3/uL (0.11-0.8); Monocytes % 3.2 % (1.7-12.7); Neutrophils # 1.8 10*3/uL (1.4-7.4); Platelet Count 286 T/CUMM (130-400); Red Blood Count 3.63 MC/CUMM (3.8-5.5); Red Cell Distribution Width 18.5 % (9.3-17.3); White Blood Count 4.3 T/CUMM (4-12)
[2018-09-04 04:26] LABS: Apearance,Urine CLEAR (Clear); Bilirubin,Urine Negative (Negative); Blood, Urine Negative (Negative); Glucose,Urine (UA) Negative (Negative); Hyaline Casts,Urine 3 /LPF (0-3); Ketones,Urine Negative (Negative); Nitrite,Urine Negative (Negative); Protein,Urine Negative; RBC,Urine 3 /HPF (0-4); Squamous Epithelial Cell,Urine Occasional /HPF (0-10); Urine Color Yellow (Yellow); Urine Specific Gravity 1.023 (1.001-1.035); WBC,Urine 2 /HPF (0-6)
[2018-09-04 04:45] LABS: Albumin 3.4 G/DL (3.4-5.0); Bilirubin,Total 0.6 MG/DL (0.2-1.0); Calcium 9.1 MG/DL (8.5-10.1); Osmolality,Calculated 291.6 MOS/KG (273-304); Potassium 3.2 MMOL/L (3.5-5.1); Total Protein 6.7 G/DL (6.4-8.3)
[2018-09-04] MEDS ORDERED: HYDROmorphone 2 MG TABLET PO PRN (05:01)
[2018-09-04] MEDS ORDERED: ONDANSETRON 4 MG/2 ML VIAL IV PRN (05:01)
[2018-09-04] MEDS ORDERED: INFLUENZA VIRUS VACCINE 0.5 ML SYRINGE IM ONE (09:00)
[2018-09-04] MEDS: DOCUSATE SODIUM 100 MG CAPSULE PO SCH ×2 (09:54→20:45)
[2018-09-04] MEDS: PANTOPRAZOLE 40 MG VIAL IV SCH (09:55)
[2018-09-04] MEDS: HYDROmorphone 2 MG/1 ML VIAL IV PRN ×3 (11:21→20:48)
[2018-09-04] MEDS: CELECOXIB 200 MG CAPSULE PO SCH (16:36)
[2018-09-04] MEDS: tiZANidine 4 MG TABLET PO SCH (16:36)
[2018-09-04] MEDS: CARVEDILOL 25 MG TABLET PO SCH (20:45)
[2018-09-04] MEDS: PREGABALIN 75 MG CAPSULE PO SCH (20:45)
[2018-09-04] MEDS: TOPIRAMATE 100 MG TABLET PO SCH (20:45)
[2018-09-05] MEDS: HYDROmorphone 2 MG/1 ML VIAL IV PRN (04:21)
[2018-09-05] MEDS: CLOPIDOGREL 75 MG TABLET PO SCH (08:39)
[2018-09-05] MEDS: FUROSEMIDE 40 MG TABLET PO SCH (08:40)
[2018-09-05] MEDS: CELECOXIB 200 MG CAPSULE PO SCH ×2 (08:40→16:12)
[2018-09-05] MEDS: OLMESARTAN 20 MG TABLET PO SCH (08:40)
[2018-09-05] MEDS: DOCUSATE SODIUM 100 MG CAPSULE PO SCH ×2 (08:41→21:17)
[2018-09-05] MEDS: CARVEDILOL 25 MG TABLET PO SCH ×2 (08:41→21:17)
[2018-09-05] MEDS: TOPIRAMATE 100 MG TABLET PO SCH ×2 (08:41→21:17)
[2018-09-05] MEDS: tiZANidine 4 MG TABLET PO SCH ×2 (08:41→16:12)
[2018-09-05] MEDS: ASPIRIN EC 81 MG TABLET PO SCH (08:42)
[2018-09-05] MEDS: FOLIC ACID 1 MG TABLET PO SCH (08:42)
[2018-09-05] MEDS: PANTOPRAZOLE 40 MG VIAL IV SCH (08:43)
[2018-09-05] MEDS: PREGABALIN 75 MG CAPSULE PO SCH (21:17)
[2018-09-06] MEDS: HYDROmorphone 2 MG/1 ML VIAL IV PRN ×2 (01:48→08:52)
[2018-09-06] MEDS: OLMESARTAN 20 MG TABLET PO SCH (08:49)
[2018-09-06] MEDS: FUROSEMIDE 40 MG TABLET PO SCH (08:49)
[2018-09-06] MEDS: CELECOXIB 200 MG CAPSULE PO SCH (08:49)
[2018-09-06] MEDS: ASPIRIN EC 81 MG TABLET PO SCH (08:50)
[2018-09-06] MEDS: tiZANidine 4 MG TABLET PO SCH (08:50)
[2018-09-06] MEDS: TOPIRAMATE 100 MG TABLET PO SCH (08:50)
[2018-09-06] MEDS: DOCUSATE SODIUM 100 MG CAPSULE PO SCH (08:50)
[2018-09-06] MEDS: CARVEDILOL 25 MG TABLET PO SCH (08:50)
[2018-09-06] MEDS: FOLIC ACID 1 MG TABLET PO SCH (08:50)
[2018-09-06] MEDS: CLOPIDOGREL 75 MG TABLET PO SCH (08:50)
[2018-09-06] MEDS: PANTOPRAZOLE 40 MG VIAL IV SCH (08:50)
[2018-09-06 09:06] LABS: Basophils % 0.4 % (0.0-0.8); Eosinophils # 0.1 10*3/uL (0.0-0.87); Eosinophils % 2.5 % (0.00-10.9); Hematocrit 30.2 VOL% (35.7-47.0); Immature Granulocytes % 0.4 %; Immature Granulocytes Absolute 0.02 #; Lymphocytes # 2.4 10*3/uL (1.4-4.0); Mean Corpuscular HGB Conc 29.8 GM/DL (32-36); Mean Corpuscular Hemoglobin 28 PG (27-34); Mean Corpuscular Volume 94.7 FL (87-102); Mean Platelet Volume 9.4 FL (9.6-12.0); Monocytes # 0.3 10*3/uL (0.11-0.8); Monocytes % 4.8 % (1.7-12.7); NRBC # 0.02 10*3/uL; Neutrophils # 2.8 10*3/uL (1.4-7.4); Neutrophils % 49.9 % (38.7-73.9); Platelet Count 243 T/CUMM (130-400); Red Blood Count 3.19 MC/CUMM (3.8-5.5); Red Cell Distribution Width 18.3 % (9.3-17.3); White Blood Count 5.6 T/CUMM (4-12)
[2018-09-06 09:32] LABS: Calcium 8.9 MG/DL (8.5-10.1); Osmolality,Calculated 289.8 MOS/KG (273-304); Potassium 3.2 MMOL/L (3.5-5.1)
[2018-09-06 10:01] LABS: Platelet Estimate Normal
[2018-09-06 10:02] LABS: Anisocytosis 1+
[2018-09-06 11:24] VITALS: BP 107/79
[2018-09-07] MEDS ORDERED: METHOTREXATE 2.5 MG TABLET PO SCH (09:00)
== END 2018-09-06 15:53 | disposition home health service (06) ==
LOC: EDBD → EDUNIT# → N.ED 03:15 → N.EDINP 03:15 → N.3E 05:31
PROVIDERS: ADMIT Family Medicine; ATTEND Family Medicine

== ENCOUNTER 2020-02-22 17:04 | Observation (INO) ==
[2020-02-22] MEDS ORDERED: PANTOPRAZOLE 40 MG VIAL IV STA (17:47)
[2020-02-22] MEDS ORDERED: SODIUM CHLORIDE 0.9% 1,000 ML IV STA (17:47)
[2020-02-22] MEDS ORDERED: METOCLOPRAMIDE 10 MG/2 ML VIAL IV STA (17:47)
[2020-02-22] MEDS ORDERED: ONDANSETRON 4 MG/2 ML VIAL IV STA (17:47)
[2020-02-22 18:40] LABS: Basophils % 0.3 % (0.0-0.8); Eosinophils # 0.2 10*3/uL (0.0-0.87); Eosinophils % 6.5 % (0.00-10.9); Hematocrit 19.5 VOL% (35.7-47.0); Immature Granulocytes % 0.3 %; Immature Granulocytes Absolute 0.01 #; Lymphocytes # 1.3 10*3/uL (1.4-4.0); Lymphocytes % 35.4 % (21.3-54.2); Mean Corpuscular HGB Conc 27.7 GM/DL (32-36); Mean Corpuscular Volume 93.3 FL (87-102); Mean Platelet Volume 9.7 FL (9.6-12.0); Monocytes % 1.1 % (1.7-12.7); NRBC # 0.06 10*3/uL; Neutrophils % 56.4 % (38.7-73.9); Platelet Count 237 T/CUMM (130-400); Red Blood Count 2.09 MC/CUMM (3.8-5.5); Red Cell Distribution Width 27.7 % (9.3-17.3); White Blood Count 3.7 T/CUMM (4-12)
[2020-02-22 18:44] LABS: Hemoglobin 5.4 GM/DL (12.0-16.0)
[2020-02-22 18:52] LABS: INR 1.2; PT Patient Result 12.4 SECS (9.8-11.9); Partial Thromboplastin Time 25.4 SECS (23.9-33.8)
[2020-02-22 18:57] LABS: Alanine Aminotransferase 48 U/L (13-56); Albumin 2.8 G/DL (3.4-5.0); Alkaline Phosphatase 76 U/L (45-117); Aspartate Amino Transferase 51 U/L (0-37); Bilirubin,Total < 0.39 MG/DL (0.2-1.0); Blood Urea Nitrogen 23 MG/DL (7-18); Calcium 8.5 MG/DL (8.5-10.1); Estimated Glom Filtration Rate 58 ML/MIN; Ferritin 104.9 ng/ml (8-252); Glucose 100 MG/DL (74-106); Osmolality,Calculated 282.4 MOS/KG (273-304); Total Protein 6.6 G/DL (6.4-8.3); Troponin I < 0.015 NG/ML (0.00-0.045)
[2020-02-22 19:11] LABS: Eosinophils 6 % (0-10); Hypochromasia 2+; Lymphocytes 33 % (20-55); Macrocytosis 1+; Microcytosis 2+; Platelet Estimate Adequate; Polychromasia 1+; Segmented Neutrophils 60 % (50-85); Target Cells 1+; Total Cells Counted 100
[2020-02-22 19:12] LABS: Spherocytes 2+; Tear Drop Cells Few
[2020-02-22] MEDS ORDERED: SODIUM CHLORIDE 0.9% 1,000 ML IV PRN (19:34)
[2020-02-22] MEDS ORDERED: ONDANSETRON 4 MG/2 ML VIAL IV PRN (19:47)
[2020-02-22] MEDS: MEROPENEM 500 MG in SODIUM CHLORIDE 0.9% 100 ML IV SCH (21:49)
[2020-02-22] MEDS: TOPIRAMATE 100 MG TABLET PO SCH (23:25)
[2020-02-22] MEDS: carvediloL 25 MG TABLET PO SCH (23:25)
[2020-02-22] MEDS ORDERED: traZODone 50 MG TABLET PO PRN (23:30)
[2020-02-23] MEDS: ALBUTEROL/IPRATROPIUM 3 ML NEB RESP TX SCH ×4 (01:13→20:05)
[2020-02-23] MEDS: PREGABALIN 75 MG CAPSULE PO SCH ×2 (05:51→21:11)
[2020-02-23] MEDS: MEROPENEM 500 MG in SODIUM CHLORIDE 0.9% 100 ML IV SCH ×4 (06:13→21:11)
[2020-02-23 06:18] LABS: Basophils % 0.2 % (0.0-0.8); Eosinophils # 0.3 10*3/uL (0.0-0.87); Eosinophils % 7.1 % (0.00-10.9); Hematocrit 24.3 VOL% (35.7-47.0); Immature Granulocytes % 0.7 %; Immature Granulocytes Absolute 0.03 #; Lymphocytes # 1.4 10*3/uL (1.4-4.0); Lymphocytes % 31.7 % (21.3-54.2); Mean Corpuscular Volume 92.4 FL (87-102); Mean Platelet Volume 9.6 FL (9.6-12.0); Monocytes % 1.3 % (1.7-12.7); NRBC # 0.04 10*3/uL; Platelet Count 188 T/CUMM (130-400); Red Cell Distribution Width 24.6 % (9.3-17.3); White Blood Count 4.5 T/CUMM (4-12)
[2020-02-23 06:27] LABS: Red Blood Count 2.63 MC/CUMM (3.8-5.5)
[2020-02-23 06:28] LABS: Hemoglobin 7.3 GM/DL (12.0-16.0)
[2020-02-23 06:44] LABS: Eosinophils 6 % (0-10); Hypochromasia 2+; Lymphocytes 29 % (20-55); Microcytosis 1+; Nucleated Red Blood Cells 1 (0-5); Ovalocytes Slight; Platelet Estimate Adequate; Segmented Neutrophils 65 % (50-85); Total Cells Counted 100
[2020-02-23] MEDS ORDERED: CLOPIDOGREL 75 MG TABLET PO SCH (09:00)
[2020-02-23] MEDS: tiZANidine 4 MG TABLET PO SCH ×2 (09:24→17:28)
[2020-02-23] MEDS: FOLIC ACID 1 MG TABLET PO SCH (09:24)
[2020-02-23] MEDS: OLMESARTAN 20 MG TABLET PO SCH (09:24)
[2020-02-23] MEDS: PANTOPRAZOLE 40 MG TABLET PO SCH (09:24)
[2020-02-23] MEDS: TOPIRAMATE 100 MG TABLET PO SCH ×2 (09:24→21:11)
[2020-02-23] MEDS: carvediloL 25 MG TABLET PO SCH ×2 (09:24→17:28)
[2020-02-23] MEDS: FUROSEMIDE 40 MG/4 ML VIAL IV SCH ×2 (09:25→15:59)
[2020-02-23] MEDS ORDERED: SODIUM CHLORIDE 0.9% 1,000 ML IV PRN (12:10)
[2020-02-23] MEDS: MORPHINE 4 MG/1 ML VIAL IV PRN (22:01)
[2020-02-23] MEDS ORDERED: ALUMINUM/MAGNES/SIMETH MAX STR 30 ML UDCUP PO PRN (23:42)
[2020-02-24] MEDS: ALBUTEROL/IPRATROPIUM 3 ML NEB RESP TX SCH ×2 (01:35→07:00)
[2020-02-24] MEDS: MORPHINE 4 MG/1 ML VIAL IV PRN (02:41)
[2020-02-24] MEDS: MEROPENEM 500 MG in SODIUM CHLORIDE 0.9% 100 ML IV SCH ×2 (02:44→09:12)
[2020-02-24 04:53] LABS: Basophils % 0.4 % (0.0-0.8); Eosinophils # 0.4 10*3/uL (0.0-0.87); Eosinophils % 8.3 % (0.00-10.9); Hematocrit 30.7 VOL% (35.7-47.0); Hemoglobin 9.2 GM/DL (12.0-16.0); Immature Granulocytes % 0.2 %; Immature Granulocytes Absolute 0.01 #; Lymphocytes # 1.6 10*3/uL (1.4-4.0); Lymphocytes % 36.3 % (21.3-54.2); Mean Platelet Volume 9.8 FL (9.6-12.0); Monocytes % 0.4 % (1.7-12.7); NRBC # 0.02 10*3/uL; Neutrophils % 54.4 % (38.7-73.9); Platelet Count 146 T/CUMM (130-400); Red Cell Distribution Width 22.1 % (9.3-17.3); White Blood Count 4.5 T/CUMM (4-12)
[2020-02-24 07:03] LABS: Anisocytosis 2+
[2020-02-24 07:04] LABS: Hypochromasia 2+; Macrocytosis 1+
[2020-02-24 07:05] LABS: Elliptocytes Few; Microcytosis 1+; Ovalocytes Few; Schistocytes Slight
[2020-02-24 07:06] LABS: Spherocytes Few
[2020-02-24 07:09] LABS: Platelet Estimate Adequate
[2020-02-24] MEDS ORDERED: ACETAMINOPHEN 325 MG TABLET PO PRN (08:34)
[2020-02-24] MEDS ORDERED: GLUCAGON 1 MG VIAL ONE (08:43)
[2020-02-24 08:49] VITALS: BP 162/92
[2020-02-24] MEDS: OLMESARTAN 20 MG TABLET PO SCH (09:11)
[2020-02-24] MEDS: FOLIC ACID 1 MG TABLET PO SCH (09:11)
[2020-02-24] MEDS: carvediloL 25 MG TABLET PO SCH (09:11)
[2020-02-24] MEDS: FUROSEMIDE 40 MG/4 ML VIAL IV SCH (09:11)
[2020-02-24] MEDS: tiZANidine 4 MG TABLET PO SCH (09:11)
[2020-02-24] MEDS: TOPIRAMATE 100 MG TABLET PO SCH (09:12)
[2020-02-24] MEDS: PANTOPRAZOLE 40 MG TABLET PO SCH (09:12)
[2020-02-28] MEDS ORDERED: METHOTREXATE 2.5 MG TABLET PO SCH (09:00)
== END 2020-02-24 13:55 | disposition home or self-care (01) ==
LOC: N.EDINP 17:04 → N.ED 17:04 → N.EDINP 23:37 → N.3E 23:56
PROVIDERS: ADMIT Family Medicine; ATTEND Family Medicine